=== PATIENT | female | born 1950 | race Caucasian/White ===

== ENCOUNTER → 2016-10-28 | Outpatient (REF) | payer MEDICARE, OTHER ==
[~2016-10-28] MED LIST: /ZIAC5TA OR; ACET65TA; CALCCHW12; CALCCHW12 PO; CIPR500T19 PO; FLAG500T PO; HYDR25TA6; PERC5TAB8 OR; THERGRAN PO; VICO5TAB OR; ZEBE5TAB PO; ZOFR8TAB OR; [UNRECOGNIZED DRUG - REMARK]; [UNRECOGNIZED DRUG - REMARK]; neosporin TOP
[2016-10-28 15:45] LABS: MEAN CORPUSCULAR HEMOGLOBIN 31.5 pg (27.0-33.0); MEAN CORPUSCULAR HGB CONC 33.5 g/dl (32.0-36.5); RED CELL DISTRIBUTION WIDTH 12.8 % (11.5-14.5); WHITE BLOOD COUNT 11.8 K/mm3 (4.0-10.0)
[2016-10-28 15:54] LABS: ALBUMIN 3.4 GM/DL (3.2-5.2); ALBUMIN/GLOBULIN RATIO 0.92 (1.00-1.93); ALKALINE PHOSPHATASE 113 U/L (45-117); ALT/SGPT 17 U/L (12-78); ANION GAP 7 MEQ/L (8-16); AST/SGOT 19 U/L (15-37); BILIRUBIN,TOTAL 0.4 MG/DL (0.2-1.0); BLOOD UREA NITROGEN 14 MG/DL (7-18); CARBON DIOXIDE LEVEL 32 MEQ/L (21-32); CHLORIDE LEVEL 104 MEQ/L (98-107); CHOLESTEROL LEVEL 175 MG/DL (<200); CREATININE FOR GFR 0.65 MG/DL (0.55-1.02); GLOMERULAR FILTRATION RATE > 60.0 (>45); GLUCOSE, FASTING 99 MG/DL (80-110); POTASSIUM SERUM 4.6 MEQ/L (3.5-5.1); SODIUM LEVEL 143 MEQ/L (136-145); TOTAL PROTEIN 7.1 GM/DL (6.4-8.2); TRIGLYCERIDES LEVEL 141 MG/DL (<150)
== END ==
LOC: M SFHCSACK 08:57
PROVIDERS: ATTEND Physician Assistant
DX: J44.9 Chronic obstructive pulmonary disease, unspecified (principal); D75.1 Secondary polycythemia; I10 Essential (primary) hypertension; Z68.41 Body mass index [BMI] 40.0-44.9, adult

== ENCOUNTER → 2017-05-14 | Outpatient (REF) | payer MEDICARE, OTHER ==
[2017-05-14 15:56] LABS: ALBUMIN 3.3 GM/DL (3.2-5.2); ALBUMIN/GLOBULIN RATIO 0.92 (1.00-1.93); ALKALINE PHOSPHATASE 112 U/L (45-117); ALT/SGPT 46 U/L (12-78); ANION GAP 8 MEQ/L (8-16); AST/SGOT 31 U/L (15-37); BILIRUBIN,TOTAL 0.3 MG/DL (0.2-1.0); BLOOD UREA NITROGEN 15 MG/DL (7-18); CALCIUM LEVEL 9.1 MG/DL (8.8-10.2); CARBON DIOXIDE LEVEL 31 MEQ/L (21-32); CHLORIDE LEVEL 105 MEQ/L (98-107); CHOLESTEROL LEVEL 165 MG/DL (<200); CREATININE FOR GFR 0.62 MG/DL (0.55-1.02); GLOMERULAR FILTRATION RATE > 60.0 (>45); GLUCOSE, FASTING 114 MG/DL (80-110); POTASSIUM SERUM 4.1 MEQ/L (3.5-5.1); SODIUM LEVEL 144 MEQ/L (136-145); TOTAL PROTEIN 6.9 GM/DL (6.4-8.2); TRIGLYCERIDES LEVEL 149 MG/DL (<150)
[2017-05-14 17:02] LABS: MEAN CORPUSCULAR HEMOGLOBIN 32.2 pg (27.0-33.0); MEAN CORPUSCULAR HGB CONC 34.2 g/dl (32.0-36.5); RED CELL DISTRIBUTION WIDTH 12.5 % (11.5-14.5); WHITE BLOOD COUNT 10.5 K/mm3 (4.0-10.0)
== END ==
LOC: M SFHCSACK 08:30
PROVIDERS: ATTEND Physician Assistant
DX: J44.9 Chronic obstructive pulmonary disease, unspecified (principal); D75.1 Secondary polycythemia; I10 Essential (primary) hypertension; Z68.41 Body mass index [BMI] 40.0-44.9, adult
CPT/HCPCS: 36415; 80053; 80061; 85027; G0463

== ENCOUNTER → 2017-08-03 | Outpatient (CLI) | payer MEDICARE, OTHER ==
[2017-08-03 17:09] LABS: ANION GAP 8 MEQ/L (8-16); BLOOD UREA NITROGEN 12 MG/DL (7-18); CALCIUM LEVEL 9.5 MG/DL (8.8-10.2); CARBON DIOXIDE LEVEL 34 MEQ/L (21-32); CHLORIDE LEVEL 100 MEQ/L (98-107); CREATININE FOR GFR 0.65 MG/DL (0.55-1.02); GLOMERULAR FILTRATION RATE > 60.0 (>45); GLUCOSE, FASTING 93 MG/DL (80-110); POTASSIUM SERUM 4.5 MEQ/L (3.5-5.1); SODIUM LEVEL 142 MEQ/L (136-145)
== END ==
LOC: M WUC 13:18
PROVIDERS: ATTEND Internal Medicine Cardiovascular Disease
DX: R60.9 Edema, unspecified (principal)

== ENCOUNTER 2017-10-27 14:31 | Inpatient (IN) | payer MEDICARE, BC, OTHER ==
[2017-10-27] MEDS: IPRATROPIUM 0.5MG/ALBUTEROL 2.5MG INH SOL UD 3ML (DUONEB)(J7620) NEB ×3 (15:28→23:54)
[2017-10-27 15:54] LABS: ABG BASE EXCESS 1.5 (-2.0-2.0); ABG O2 SATURATION 99.2 % (95.0-99.0); ABG PARTIAL PRESSURE CO2 40.3 mmHg (35.0-45.0); ABG PARTIAL PRESSURE O2 153.1 mmHg (75.0-100.0); ABG STANDARD HCO3 25.9 MEQ/L (22.0-26.0); ABG TOTAL CO2 27.2 MEQ/L (23.0-31.0); ABG pH (ARTERIAL) 7.427 UNITS (7.350-7.450)
[2017-10-27] MEDS: methylPREDNISolone INJ 125 MG/2 ML VIAL (J2930) IV (16:10)
[2017-10-27 16:19] LABS: BASO # 0.1 10^3/uL (0.0-0.2); BASO % 0.6 % (0.0-1.0); EOS # 0.2 10^3/uL (0.0-0.50); EOS % 1.3 % (0.0-3.0); HEMATOCRIT 55.1 % (36.0-47.0); HEMOGLOBIN 18.3 g/dl (12.0-16.0); IMMATURE GRANULOCYTE % 0.4 % (0-3.0); LYMPH % 14.1 % (24.0-44.0); MEAN CORPUSCULAR HEMOGLOBIN 31.3 pg (27.0-33.0); MEAN CORPUSCULAR HGB CONC 33.2 g/dl (32.0-36.5); MEAN CORPUSCULAR VOLUME 94.2 fl (80.0-96.0); MONO # 1.3 10^3/uL (0.0-0.8); NEUTROPHILS # 10.6 10^3/uL (1.8-7.7); NEUTROPHILS % 74.6 % (36.0-66.0); PLATELET COUNT, AUTOMATED 178 10^3/uL (150-450); RED BLOOD COUNT 5.85 10^6/uL (4.00-5.40); RED CELL DISTRIBUTION WIDTH 13.3 % (11.5-14.5); WHITE BLOOD COUNT 14.3 10^3/uL (4.0-10.0)
[2017-10-27 16:43] LABS: LACTIC ACID SEPSIS PROTOCOL 1.4 MMOL/L (0.4-2.0)
[2017-10-27 16:47] LABS: ANION GAP 5 MEQ/L (8-16); BLOOD UREA NITROGEN 15 MG/DL (7-18); CALCIUM LEVEL 9.2 MG/DL (8.8-10.2); CARBON DIOXIDE LEVEL 32 MEQ/L (21-32); CHLORIDE LEVEL 102 MEQ/L (98-107); CPK CREATINE PHOSPHOKINASE 61 U/L (26-192); CREATININE FOR GFR 0.86 MG/DL (0.55-1.30); GLOMERULAR FILTRATION RATE > 60.0 (>45); GLUCOSE, FASTING 101 MG/DL (70-100); MB/CK RELATIVE INDEX 3.27 (< OR =4); NT-PRO BNP 5050 PG/ML (<125); POTASSIUM SERUM 3.6 MEQ/L (3.5-5.1); SODIUM LEVEL 139 MEQ/L (136-145); TROPONIN I < 0.02 NG/ML (< 0.10)
[2017-10-27 16:50] LABS: INFLUENZA A AMPLIFICATION NEGATIVE (NEGATIVE); INFLUENZA B AMPLIFICATION NEGATIVE (NEGATIVE)
[2017-10-27] MEDS: FUROSEMIDE 100 MG/10 ML VIAL (J1940) IV (17:13)
[2017-10-27] MEDS ORDERED: ACETAMINOPHEN TAB 650MG DOSE (2X325MG) PO (18:45)
[2017-10-27] MEDS ORDERED: methylPREDNISolone 500 MG, VIAL MATE ADAPTER 1 EACH in D5W 250 ML IV (18:45)
[2017-10-27] MEDS ORDERED: ISOVUE-370 76% 100ML VIAL (Q9967) As Ordered (18:58)
[2017-10-27 19:06] LABS: MAGNESIUM LEVEL 1.7 MG/DL (1.8-2.4)
[2017-10-27] MEDS: POTASSIUM CHLORIDE 10 MEQ SR TABLET PO (21:23)
[2017-10-27] MEDS: HEPARIN SOD (PORCINE) 5000 UNITS/ML VIAL SC (21:24)
[2017-10-27] MEDS: MAG SULF 1GM/100ML (MAG RUN) 1 GM in APPROPRIATE DILUENT 1 EA IV (21:24)
[2017-10-27] MEDS ORDERED: HEPARIN SOD (PORCINE) 5000 UNITS/ML VIAL IV ×2 (21:30)
[2017-10-27] MEDS ORDERED: NICOTINE POLACRILEX 2 MG GUM PO (21:45)
[2017-10-27 22:14] LABS: INR 1.03; PARTIAL THROMBOPLASTIN TIME 32.4 SECONDS (26.8-37.9); PROTHROMBIN TIME 13.6 SECONDS (12.4-14.5)
[2017-10-27] MEDS: WARFARIN SOD 7.5 MG TAB PO (22:37)
[2017-10-27] MEDS: NICOTINE 14 MG/24 HR TRANSDERMAL TD (22:38)
[2017-10-27] MEDS: HEPARIN DRIP 25,000 UNITS in APPROPRIATE DILUENT 1 EA IV (23:05)
[2017-10-28] MEDS ORDERED: methylPREDNISolone INJ 125 MG/2 ML VIAL (J2930) IV
[2017-10-28 00:37] LABS: CPK CREATINE PHOSPHOKINASE 42 U/L (26-192); TROPONIN I < 0.02 NG/ML (< 0.10)
[2017-10-28 00:38] LABS: CK-MB VALUE MASS 1.4 NG/ML (0.0-3.6); MB/CK RELATIVE INDEX 3.33 (< OR =4)
[2017-10-28] MEDS ORDERED: FUROSEMIDE 40 MG/4 ML VIAL (J1940) IV ×2 (01:00→09:00)
[2017-10-28] MEDS: IPRATROPIUM 0.5MG/ALBUTEROL 2.5MG INH SOL UD 3ML (DUONEB)(J7620) NEB ×6 (04:00→23:33)
[2017-10-28 04:51] LABS: BASO % 0.3 % (0.0-1.0); EOS % 0.2 % (0.0-3.0); HEMATOCRIT 52.3 % (36.0-47.0); HEMOGLOBIN 17.5 g/dl (12.0-16.0); IMMATURE GRANULOCYTE % 0.3 % (0-3.0); LYMPH % 8.6 % (24.0-44.0); MEAN CORPUSCULAR HGB CONC 33.5 g/dl (32.0-36.5); MEAN CORPUSCULAR VOLUME 92.6 fl (80.0-96.0); MONO # 0.5 10^3/uL (0.0-0.8); MONO % 4.2 % (0.0-5.0); NEUTROPHILS # 9.7 10^3/uL (1.8-7.7); NEUTROPHILS % 86.4 % (36.0-66.0); PLATELET COUNT, AUTOMATED 196 10^3/uL (150-450); RED BLOOD COUNT 5.65 10^6/uL (4.00-5.40); RED CELL DISTRIBUTION WIDTH 13.2 % (11.5-14.5); WHITE BLOOD COUNT 11.2 10^3/uL (4.0-10.0)
[2017-10-28 05:10] LABS: INR 1.08; PROTHROMBIN TIME 14.2 SECONDS (12.4-14.5)
[2017-10-28 05:12] LABS: PARTIAL THROMBOPLASTIN TIME 71.7 SECONDS (26.8-37.9)
[2017-10-28 05:21] LABS: ANION GAP 6 MEQ/L (8-16); BLOOD UREA NITROGEN 16 MG/DL (7-18); CALCIUM LEVEL 8.7 MG/DL (8.8-10.2); CARBON DIOXIDE LEVEL 31 MEQ/L (21-32); CHLORIDE LEVEL 100 MEQ/L (98-107); CK-MB VALUE MASS 1.2 NG/ML (0.0-3.6); CPK CREATINE PHOSPHOKINASE 38 U/L (26-192); CREATININE FOR GFR 0.85 MG/DL (0.55-1.30); GLOMERULAR FILTRATION RATE > 60.0 (>45); GLUCOSE, FASTING 156 MG/DL (70-100); MB/CK RELATIVE INDEX 3.15 (< OR =4); POTASSIUM SERUM 3.9 MEQ/L (3.5-5.1); SODIUM LEVEL 137 MEQ/L (136-145); TROPONIN I < 0.02 NG/ML (< 0.10)
[2017-10-28] MEDS: FUROSEMIDE 20 MG TAB PO (08:14)
[2017-10-28] MEDS: BISOPROLOL FUMARATE 10 MG TAB PO (08:15)
[2017-10-28] MEDS ORDERED: POTASSIUM CHLORIDE 10 MEQ SR TABLET PO (09:00)
[2017-10-28 11:12] LABS: ESTIMATED AVERAGE GLUCOSE 134 MG/DL (60-110); HEMOGLOBIN A1c 6.3 %
[2017-10-28 12:02] LABS: PARTIAL THROMBOPLASTIN TIME 72.9 SECONDS (26.8-37.9)
[2017-10-28 12:12] LABS: CK-MB VALUE MASS 1.6 NG/ML (0.0-3.6); CPK CREATINE PHOSPHOKINASE 40 U/L (26-192); TROPONIN I < 0.02 NG/ML (< 0.10)
[2017-10-28] MEDS: HEPARIN DRIP 25,000 UNITS in APPROPRIATE DILUENT 1 EA IV (15:06)
[2017-10-28] MEDS: WARFARIN SOD 5 MG TAB PO (16:04)
[2017-10-28] MEDS: NICOTINE 14 MG/24 HR TRANSDERMAL TD (20:21)
[2017-10-29] MEDS: IPRATROPIUM 0.5MG/ALBUTEROL 2.5MG INH SOL UD 3ML (DUONEB)(J7620) NEB ×6 (03:08→23:24)
[2017-10-29 04:40] LABS: BASO # 0.1 10^3/uL (0.0-0.2); BASO % 0.6 % (0.0-1.0); EOS # 0.3 10^3/uL (0.0-0.50); EOS % 2.1 % (0.0-3.0); HEMATOCRIT 50.4 % (36.0-47.0); HEMOGLOBIN 16.5 g/dl (12.0-16.0); IMMATURE GRANULOCYTE % 0.6 % (0-3.0); LYMPH # 3.5 10^3/uL (1.5-4.5); LYMPH % 24.4 % (24.0-44.0); MEAN CORPUSCULAR HEMOGLOBIN 31.2 pg (27.0-33.0); MEAN CORPUSCULAR HGB CONC 32.7 g/dl (32.0-36.5); MEAN CORPUSCULAR VOLUME 95.3 fl (80.0-96.0); MONO # 1.1 10^3/uL (0.0-0.8); MONO % 7.6 % (0.0-5.0); NEUTROPHILS # 9.4 10^3/uL (1.8-7.7); NEUTROPHILS % 64.7 % (36.0-66.0); PLATELET COUNT, AUTOMATED 198 10^3/uL (150-450); RED BLOOD COUNT 5.29 10^6/uL (4.00-5.40); RED CELL DISTRIBUTION WIDTH 13.5 % (11.5-14.5); WHITE BLOOD COUNT 14.5 10^3/uL (4.0-10.0)
[2017-10-29 04:51] LABS: INR 1.12; PROTHROMBIN TIME 14.6 SECONDS (12.4-14.5)
[2017-10-29 04:53] LABS: PARTIAL THROMBOPLASTIN TIME 73.3 SECONDS (26.8-37.9)
[2017-10-29 05:01] LABS: ANION GAP 6 MEQ/L (8-16); BLOOD UREA NITROGEN 23 MG/DL (7-18); CALCIUM LEVEL 8.5 MG/DL (8.8-10.2); CARBON DIOXIDE LEVEL 31 MEQ/L (21-32); CHLORIDE LEVEL 103 MEQ/L (98-107); CREATININE FOR GFR 0.81 MG/DL (0.55-1.30); GLOMERULAR FILTRATION RATE > 60.0 (>45); GLUCOSE, FASTING 113 MG/DL (70-100); SODIUM LEVEL 140 MEQ/L (136-145)
[2017-10-29] MEDS: FUROSEMIDE 20 MG TAB PO (08:13)
[2017-10-29] MEDS: BISOPROLOL FUMARATE 10 MG TAB PO (08:14)
[2017-10-29] MEDS: HEPARIN DRIP 25,000 UNITS in APPROPRIATE DILUENT 1 EA IV (08:16)
[2017-10-29] MEDS: APIXABAN 5 MG TAB (ELIQUIS) PO ×2 (12:28→20:03)
[2017-10-29] MEDS: NICOTINE 14 MG/24 HR TRANSDERMAL TD (20:03)
[2017-10-30] MEDS: IPRATROPIUM 0.5MG/ALBUTEROL 2.5MG INH SOL UD 3ML (DUONEB)(J7620) NEB ×6 (02:15→23:43)
[2017-10-30 05:54] LABS: BASO # 0.1 10^3/uL (0.0-0.2); BASO % 0.8 % (0.0-1.0); EOS # 0.3 10^3/uL (0.0-0.50); EOS % 3.1 % (0.0-3.0); HEMATOCRIT 52.2 % (36.0-47.0); HEMOGLOBIN 16.9 g/dl (12.0-16.0); IMMATURE GRANULOCYTE % 0.5 % (0-3.0); LYMPH # 2.5 10^3/uL (1.5-4.5); LYMPH % 22.1 % (24.0-44.0); MEAN CORPUSCULAR HEMOGLOBIN 31.5 pg (27.0-33.0); MEAN CORPUSCULAR HGB CONC 32.4 g/dl (32.0-36.5); MEAN CORPUSCULAR VOLUME 97.2 fl (80.0-96.0); MONO # 1.1 10^3/uL (0.0-0.8); MONO % 10.3 % (0.0-5.0); NEUTROPHILS % 63.2 % (36.0-66.0); PLATELET COUNT, AUTOMATED 218 10^3/uL (150-450); RED BLOOD COUNT 5.37 10^6/uL (4.00-5.40); RED CELL DISTRIBUTION WIDTH 13.3 % (11.5-14.5); WHITE BLOOD COUNT 11.1 10^3/uL (4.0-10.0)
[2017-10-30 06:06] LABS: PROTHROMBIN TIME 17.4 SECONDS (12.4-14.5)
[2017-10-30 06:17] LABS: ANION GAP 5 MEQ/L (8-16); BLOOD UREA NITROGEN 19 MG/DL (7-18); CALCIUM LEVEL 9.1 MG/DL (8.8-10.2); CARBON DIOXIDE LEVEL 31 MEQ/L (21-32); CHLORIDE LEVEL 104 MEQ/L (98-107); CREATININE FOR GFR 0.72 MG/DL (0.55-1.30); GLOMERULAR FILTRATION RATE > 60.0 (>45); GLUCOSE, FASTING 102 MG/DL (70-100); POTASSIUM SERUM 4.4 MEQ/L (3.5-5.1); SODIUM LEVEL 140 MEQ/L (136-145)
[2017-10-30] MEDS: BISOPROLOL FUMARATE 10 MG TAB PO (08:56)
[2017-10-30] MEDS: FUROSEMIDE 20 MG TAB PO (08:56)
[2017-10-30] MEDS: APIXABAN 5 MG TAB (ELIQUIS) PO ×2 (08:56→20:20)
[2017-10-30] MEDS: NICOTINE 14 MG/24 HR TRANSDERMAL TD (20:22)
[2017-10-31] MEDS: IPRATROPIUM 0.5MG/ALBUTEROL 2.5MG INH SOL UD 3ML (DUONEB)(J7620) NEB ×6 (04:41→22:39)
[2017-10-31 05:55] LABS: BASO # 0.1 10^3/uL (0.0-0.2); BASO % 0.7 % (0.0-1.0); EOS # 0.5 10^3/uL (0.0-0.50); HEMATOCRIT 52.4 % (36.0-47.0); HEMOGLOBIN 16.8 g/dl (12.0-16.0); IMMATURE GRANULOCYTE % 0.4 % (0-3.0); LYMPH # 1.9 10^3/uL (1.5-4.5); MEAN CORPUSCULAR HEMOGLOBIN 31.5 pg (27.0-33.0); MEAN CORPUSCULAR HGB CONC 32.1 g/dl (32.0-36.5); MEAN CORPUSCULAR VOLUME 98.3 fl (80.0-96.0); MONO # 1.1 10^3/uL (0.0-0.8); NEUTROPHILS # 6.9 10^3/uL (1.8-7.7); NEUTROPHILS % 65.9 % (36.0-66.0); PLATELET COUNT, AUTOMATED 214 10^3/uL (150-450); RED BLOOD COUNT 5.33 10^6/uL (4.00-5.40); RED CELL DISTRIBUTION WIDTH 13.2 % (11.5-14.5); WHITE BLOOD COUNT 10.5 10^3/uL (4.0-10.0)
[2017-10-31 06:03] LABS: INR 1.38; PROTHROMBIN TIME 17.3 SECONDS (12.4-14.5)
[2017-10-31 06:25] LABS: ANION GAP 3 MEQ/L (8-16); BLOOD UREA NITROGEN 14 MG/DL (7-18); CALCIUM LEVEL 8.9 MG/DL (8.8-10.2); CARBON DIOXIDE LEVEL 32 MEQ/L (21-32); CHLORIDE LEVEL 105 MEQ/L (98-107); CREATININE FOR GFR 0.83 MG/DL (0.55-1.30); GLOMERULAR FILTRATION RATE > 60.0 (>45); GLUCOSE, FASTING 115 MG/DL (70-100); SODIUM LEVEL 140 MEQ/L (136-145)
[2017-10-31 06:28] LABS: POTASSIUM SERUM 5.7 MEQ/L (3.5-5.1)
[2017-10-31 08:00] LABS: POTASSIUM SERUM 4.6 MEQ/L (3.5-5.1)
[2017-10-31] MEDS: BISOPROLOL FUMARATE 10 MG TAB PO (08:01)
[2017-10-31] MEDS: FUROSEMIDE 40 MG TAB PO ×2 (08:01→16:55)
[2017-10-31] MEDS: APIXABAN 5 MG TAB (ELIQUIS) PO ×2 (08:02→20:15)
[2017-10-31] MEDS: NICOTINE 14 MG/24 HR TRANSDERMAL TD (20:15)
[2017-11-01] MEDS: IPRATROPIUM 0.5MG/ALBUTEROL 2.5MG INH SOL UD 3ML (DUONEB)(J7620) NEB ×6 (03:08→23:21)
[2017-11-01 05:55] LABS: BASO # 0.1 10^3/uL (0.0-0.2); BASO % 0.7 % (0.0-1.0); EOS # 0.6 10^3/uL (0.0-0.50); EOS % 5.8 % (0.0-3.0); HEMATOCRIT 50.7 % (36.0-47.0); HEMOGLOBIN 16.8 g/dl (12.0-16.0); IMMATURE GRANULOCYTE % 0.4 % (0-3.0); LYMPH # 1.9 10^3/uL (1.5-4.5); LYMPH % 17.6 % (24.0-44.0); MEAN CORPUSCULAR HEMOGLOBIN 31.6 pg (27.0-33.0); MEAN CORPUSCULAR HGB CONC 33.1 g/dl (32.0-36.5); MEAN CORPUSCULAR VOLUME 95.5 fl (80.0-96.0); MONO % 9.1 % (0.0-5.0); NEUTROPHILS # 7.1 10^3/uL (1.8-7.7); NEUTROPHILS % 66.4 % (36.0-66.0); PLATELET COUNT, AUTOMATED 204 10^3/uL (150-450); RED BLOOD COUNT 5.31 10^6/uL (4.00-5.40); RED CELL DISTRIBUTION WIDTH 13.1 % (11.5-14.5); WHITE BLOOD COUNT 10.7 10^3/uL (4.0-10.0)
[2017-11-01 06:05] LABS: INR 1.27; PROTHROMBIN TIME 16.2 SECONDS (12.4-14.5)
[2017-11-01 06:10] LABS: ANION GAP 6 MEQ/L (8-16); BLOOD UREA NITROGEN 15 MG/DL (7-18); CALCIUM LEVEL 8.5 MG/DL (8.8-10.2); CARBON DIOXIDE LEVEL 31 MEQ/L (21-32); CHLORIDE LEVEL 103 MEQ/L (98-107); CREATININE FOR GFR 0.63 MG/DL (0.55-1.30); GLOMERULAR FILTRATION RATE > 60.0 (>45); GLUCOSE, FASTING 110 MG/DL (70-100); POTASSIUM SERUM 4.1 MEQ/L (3.5-5.1); SODIUM LEVEL 140 MEQ/L (136-145)
[2017-11-01] MEDS: APIXABAN 5 MG TAB (ELIQUIS) PO ×2 (10:03→20:05)
[2017-11-01] MEDS: FUROSEMIDE 40 MG TAB PO ×2 (10:03→17:37)
[2017-11-01] MEDS: BISOPROLOL FUMARATE 10 MG TAB PO (10:04)
[2017-11-01] MEDS: NICOTINE 14 MG/24 HR TRANSDERMAL TD (20:05)
[2017-11-02] MEDS: IPRATROPIUM 0.5MG/ALBUTEROL 2.5MG INH SOL UD 3ML (DUONEB)(J7620) NEB ×3 (03:29→11:51)
[2017-11-02 06:22] LABS: INR 1.21; PROTHROMBIN TIME 15.5 SECONDS (12.4-14.5)
[2017-11-02] MEDS: BISOPROLOL FUMARATE 10 MG TAB PO (08:44)
[2017-11-02] MEDS: APIXABAN 5 MG TAB (ELIQUIS) PO (08:44)
[2017-11-02] MEDS: FUROSEMIDE 40 MG TAB PO (08:45)
== END 2017-11-02 15:33 | disposition home or self-care (01) | DRG 175 ==
LOC: M MSPAV 10-29 16:28 → M ED 14:31 → M ED INP 18:33 → M ICU 20:45
DX: I26.99 Other pulmonary embolism without acute cor pulmonale (principal); J96.01 Acute respiratory failure with hypoxia; J44.1 Chronic obstructive pulmonary disease with (acute) exacerbation; I50.32 Chronic diastolic (congestive) heart failure; Z68.42 Body mass index [BMI] 45.0-49.9, adult; G47.33 Obstructive sleep apnea (adult) (pediatric); F17.200 Nicotine dependence, unspecified, uncomplicated; E66.01 Morbid (severe) obesity due to excess calories; Z66 Do not resuscitate; I27.20 Pulmonary hypertension, unspecified; R73.03 Prediabetes; Z79.899 Other long term (current) drug therapy; Z91.040 Latex allergy status

== ENCOUNTER → 2017-11-10 | Outpatient (REF) | payer MEDICARE, OTHER ==
[2017-11-10 14:18] LABS: BASO # 0.1 10^3/uL (0.0-0.2); BASO % 0.9 % (0.0-1.0); EOS # 0.4 10^3/uL (0.0-0.50); EOS % 2.6 % (0.0-3.0); HEMATOCRIT 53.3 % (36.0-47.0); HEMOGLOBIN 17.4 g/dl (12.0-16.0); IMMATURE GRANULOCYTE % 0.4 % (0-3.0); LYMPH % 14.7 % (24.0-44.0); MEAN CORPUSCULAR HEMOGLOBIN 30.8 pg (27.0-33.0); MEAN CORPUSCULAR HGB CONC 32.6 g/dl (32.0-36.5); MEAN CORPUSCULAR VOLUME 94.3 fl (80.0-96.0); MONO # 1.1 10^3/uL (0.0-0.8); MONO % 7.9 % (0.0-5.0); NEUTROPHILS # 10.2 10^3/uL (1.8-7.7); NEUTROPHILS % 73.5 % (36.0-66.0); PLATELET COUNT, AUTOMATED 241 10^3/uL (150-450); RED BLOOD COUNT 5.65 10^6/uL (4.00-5.40); RED CELL DISTRIBUTION WIDTH 12.6 % (11.5-14.5); WHITE BLOOD COUNT 13.8 10^3/uL (4.0-10.0)
[2017-11-10 14:26] LABS: ALBUMIN 3.3 GM/DL (3.2-5.2); ALBUMIN/GLOBULIN RATIO 0.94 (1.00-1.93); ALKALINE PHOSPHATASE 110 U/L (45-117); ALT/SGPT 23 U/L (12-78); ANION GAP 5 MEQ/L (8-16); AST/SGOT 21 U/L (7-37); BILIRUBIN,TOTAL 0.4 MG/DL (0.2-1.0); BLOOD UREA NITROGEN 15 MG/DL (7-18); CALCIUM LEVEL 8.9 MG/DL (8.8-10.2); CARBON DIOXIDE LEVEL 34 MEQ/L (21-32); CHLORIDE LEVEL 103 MEQ/L (98-107); CREATININE FOR GFR 0.69 MG/DL (0.55-1.30); GLOMERULAR FILTRATION RATE > 60.0 (>45); GLUCOSE, FASTING 124 MG/DL (70-100); POTASSIUM SERUM 4.2 MEQ/L (3.5-5.1); SODIUM LEVEL 142 MEQ/L (136-145); TOTAL PROTEIN 6.8 GM/DL (6.4-8.2)
[2017-11-10 14:32] LABS: TOTAL 25(OH) VITAMIN D 24.7 NG/ML (30.0-100.0)
== END ==
LOC: M SFHCSACK 10:33
DX: Z00.00 Encounter for general adult medical examination without abnormal findings (principal); I10 Essential (primary) hypertension; E55.9 Vitamin D deficiency, unspecified
CPT/HCPCS: 80053

== ENCOUNTER → 2017-12-28 | Outpatient (CLI) | payer MEDICARE, BC, OTHER | LOC: M SLEEP 19:52 | DX: G47.30 Sleep apnea, unspecified (principal) | CPT/HCPCS: 95811 ==

== ENCOUNTER → 2018-03-08 | Outpatient (REF) | payer MEDICARE, OTHER ==
[2018-03-08 12:34] LABS: BASO # 0.1 10^3/uL (0.0-0.2); BASO % 0.8 % (0.0-1.0); EOS # 0.5 10^3/uL (0.0-0.50); EOS % 5.1 % (0.0-3.0); HEMATOCRIT 50.2 % (36.0-47.0); HEMOGLOBIN 16.6 g/dl (12.0-15.5); IMMATURE GRANULOCYTE % 0.4 % (0-3.0); LYMPH # 1.8 10^3/uL (1.5-4.5); LYMPH % 20.2 % (24.0-44.0); MEAN CORPUSCULAR HEMOGLOBIN 31.3 pg (27.0-33.0); MEAN CORPUSCULAR HGB CONC 33.1 g/dl (32.0-36.5); MEAN CORPUSCULAR VOLUME 94.5 fl (80.0-96.0); MONO # 0.8 10^3/uL (0.0-0.8); MONO % 8.9 % (0.0-5.0); NEUTROPHILS # 5.9 10^3/uL (1.8-7.7); NEUTROPHILS % 64.6 % (36.0-66.0); PLATELET COUNT, AUTOMATED 200 10^3/uL (150-450); RED BLOOD COUNT 5.31 10^6/uL (4.00-5.40); RED CELL DISTRIBUTION WIDTH 12.6 % (11.5-14.5); WHITE BLOOD COUNT 9.1 10^3/uL (4.0-10.0)
[2018-03-08 13:02] LABS: ALBUMIN 3.4 GM/DL (3.2-5.2); ALKALINE PHOSPHATASE 114 U/L (45-117); ALT/SGPT 27 U/L (12-78); ANION GAP 8 MEQ/L (8-16); AST/SGOT 23 U/L (7-37); BILIRUBIN,TOTAL 0.4 MG/DL (0.2-1.0); BLOOD UREA NITROGEN 18 MG/DL (7-18); CALCIUM LEVEL 8.9 MG/DL (8.8-10.2); CARBON DIOXIDE LEVEL 29 MEQ/L (21-32); CHLORIDE LEVEL 105 MEQ/L (98-107); CREATININE FOR GFR 0.71 MG/DL (0.55-1.30); GLOMERULAR FILTRATION RATE > 60.0 (>45); GLUCOSE, FASTING 112 MG/DL (70-100); SODIUM LEVEL 142 MEQ/L (136-145); TOTAL PROTEIN 6.8 GM/DL (6.4-8.2)
== END ==
LOC: M SFHCADAM 08:33
DX: D75.1 Secondary polycythemia (principal); R73.09 Other abnormal glucose; E55.9 Vitamin D deficiency, unspecified
CPT/HCPCS: 80053

== ENCOUNTER → 2018-08-03 | Outpatient (REF) | payer MEDICARE, OTHER ==
[~2018-08-03] MED LIST changes: +BISO10TA6 PO; +CALCTAB68 PO; +ELIQ5TAB PO; +ERYTGEL TOP; +FURO20TA2 PO; +LISI20TA PO
[2018-08-03 15:36] LABS: BASO # 0.1 10^3/uL (0.0-0.2); BASO % 0.6 % (0.0-1.0); EOS # 0.4 10^3/uL (0.0-0.50); EOS % 3.5 % (0.0-3.0); HEMATOCRIT 51.7 % (36.0-47.0); HEMOGLOBIN 16.5 g/dl (12.0-15.5); LYMPH # 2.1 10^3/uL (1.5-4.5); LYMPH % 19.2 % (24.0-44.0); MEAN CORPUSCULAR HGB CONC 31.9 g/dl (32.0-36.5); MONO % 9.3 % (0.0-5.0); NEUTROPHILS # 7.2 10^3/uL (1.8-7.7); PLATELET COUNT, AUTOMATED 245 10^3/uL (150-450); RED BLOOD COUNT 5.33 10^6/uL (4.00-5.40); WHITE BLOOD COUNT 10.8 10^3/uL (4.0-10.0)
[2018-08-03 15:43] LABS: ALBUMIN 3.1 GM/DL (3.2-5.2); ALT/SGPT 21 U/L (12-78); BILIRUBIN,TOTAL 0.4 MG/DL (0.2-1.0); BLOOD UREA NITROGEN 11 MG/DL (7-18); CALCIUM LEVEL 8.4 MG/DL (8.8-10.2); CARBON DIOXIDE LEVEL 31 MEQ/L (21-32); CHLORIDE LEVEL 104 MEQ/L (98-107); CHOLESTEROL LEVEL 175 MG/DL (<200); CHOLESTEROL RISK RATIO 4.605 (<5); CREATININE FOR GFR 0.77 MG/DL (0.55-1.30); FREE T4 0.88 NG/DL (0.76-1.46); GLOMERULAR FILTRATION RATE > 60.0 (>39); GLUCOSE, FASTING 116 MG/DL (70-100); HDL CHOLESTEROL 38 MG/DL (>40); LDL CHOLESTEROL 94 MG/DL (<100); NON-HDL-C 137 MG/DL; POTASSIUM SERUM 4.4 MEQ/L (3.5-5.1); SODIUM LEVEL 142 MEQ/L (136-145); TOTAL PROTEIN 6.7 GM/DL (6.4-8.2); TRIGLYCERIDES LEVEL 217 MG/DL (<150)
[2018-08-03 15:45] LABS: TOTAL 25(OH) VITAMIN D 33.8 NG/ML (30.0-100.0)
[2018-08-03 16:35] LABS: HEMOGLOBIN A1c 6.6 %
== END ==
LOC: M SFHCSACK 09:34
PROVIDERS: ATTEND Physician Assistant
DX: I10 Essential (primary) hypertension (principal); E78.2 Mixed hyperlipidemia; Z13.29 Encounter for screening for other suspected endocrine disorder; R73.01 Impaired fasting glucose; E55.9 Vitamin D deficiency, unspecified

== ENCOUNTER → 2018-10-31 | Outpatient (REF) | payer MEDICARE, OTHER ==
[2018-10-31 14:56] LABS: BASO # 0.1 10^3/uL (0.0-0.2); BASO % 0.7 % (0.0-1.0); EOS # 0.4 10^3/uL (0.0-0.50); EOS % 3.4 % (0.0-3.0); HEMATOCRIT 50.8 % (36.0-47.0); HEMOGLOBIN 16.9 g/dl (12.0-15.5); LYMPH # 1.9 10^3/uL (1.5-4.5); LYMPH % 16.9 % (24.0-44.0); MEAN CORPUSCULAR HEMOGLOBIN 31.7 pg (27.0-33.0); MEAN CORPUSCULAR HGB CONC 33.3 g/dl (32.0-36.5); MEAN CORPUSCULAR VOLUME 95.3 fl (80.0-96.0); MONO # 0.9 10^3/uL (0.0-0.8); MONO % 7.8 % (0.0-5.0); NEUTROPHILS % 70.8 % (36.0-66.0); PLATELET COUNT, AUTOMATED 239 10^3/uL (150-450); RED BLOOD COUNT 5.33 10^6/uL (4.00-5.40); WHITE BLOOD COUNT 11.3 10^3/uL (4.0-10.0)
[2018-10-31 14:58] LABS: ALBUMIN 3.4 GM/DL (3.2-5.2); ALT/SGPT 19 U/L (12-78); BILIRUBIN,TOTAL 0.4 MG/DL (0.2-1.0); BLOOD UREA NITROGEN 16 MG/DL (7-18); CALCIUM LEVEL 8.5 MG/DL (8.8-10.2); CARBON DIOXIDE LEVEL 28 MEQ/L (21-32); CHLORIDE LEVEL 106 MEQ/L (98-107); CHOLESTEROL LEVEL 147 MG/DL (<200); CREATININE FOR GFR 0.73 MG/DL (0.55-1.30); GLOMERULAR FILTRATION RATE > 60.0 (>39); GLUCOSE, FASTING 130 MG/DL (70-100); HDL CHOLESTEROL 44 MG/DL (>40); LDL CHOLESTEROL 74 MG/DL (<100); NON-HDL-C 103 MG/DL; POTASSIUM SERUM 4.2 MEQ/L (3.5-5.1); SODIUM LEVEL 141 MEQ/L (136-145); TOTAL PROTEIN 6.9 GM/DL (6.4-8.2); TRIGLYCERIDES LEVEL 146 MG/DL (<150)
[2018-10-31 15:58] LABS: HEMOGLOBIN A1c 6.3 %
== END ==
LOC: M SFHCSACK 09:56
PROVIDERS: ATTEND Physician Assistant
DX: I10 Essential (primary) hypertension (principal); E78.2 Mixed hyperlipidemia; R73.01 Impaired fasting glucose

== ENCOUNTER → 2019-06-15 | Outpatient (REF) | payer MEDICARE, OTHER ==
[~2019-06-15] MED LIST changes: -/ZIAC5TA OR; +BISO10TA10 PO; -BISO10TA6 PO; -LISI20TA PO; +LISI20TA19 PO; +ONDA-227 OR; +ZIAC1TAB OR; -ZOFR8TAB OR
[2019-06-15 16:43] LABS: BASO # 0.1 10^3/uL (0.0-0.2); BASO % 0.7 % (0.0-1.0); EOS # 0.4 10^3/uL (0.0-0.5); EOS % 3.2 % (0.0-3.0); HEMATOCRIT 53.7 % (36.0-47.0); HEMOGLOBIN 17.5 g/dl (12.0-15.5); LYMPH # 1.9 10^3/uL (1.5-5.0); LYMPH % 16.8 % (24.0-44.0); MEAN CORPUSCULAR HEMOGLOBIN 31.5 pg (27.0-33.0); MEAN CORPUSCULAR HGB CONC 32.6 g/dl (32.0-36.5); MEAN CORPUSCULAR VOLUME 96.8 fl (80.0-96.0); MONO % 8.5 % (0.0-5.0); NEUTROPHILS # 7.9 10^3/uL (1.5-8.5); NEUTROPHILS % 70.3 % (36.0-66.0); PLATELET COUNT, AUTOMATED 223 10^3/uL (150-450); RED BLOOD COUNT 5.55 10^6/uL (4.00-5.40); WHITE BLOOD COUNT 11.3 10^3/uL (4.0-10.0)
[2019-06-15 16:49] LABS: ALBUMIN 3.4 GM/DL (3.2-5.2); ALT/SGPT 21 U/L (12-78); BILIRUBIN,TOTAL 0.5 MG/DL (0.2-1.0); BLOOD UREA NITROGEN 12 MG/DL (7-18); CALCIUM LEVEL 9.3 MG/DL (8.8-10.2); CARBON DIOXIDE LEVEL 34 MEQ/L (21-32); CHLORIDE LEVEL 104 MEQ/L (98-107); CHOLESTEROL LEVEL 140 MG/DL (<200); CHOLESTEROL RISK RATIO 3.333 (<5); CREATININE FOR GFR 0.68 MG/DL (0.55-1.30); GLOMERULAR FILTRATION RATE > 60.0 (>39); GLUCOSE, FASTING 121 MG/DL (70-100); HDL CHOLESTEROL 42 MG/DL (>40); LDL CHOLESTEROL 57 MG/DL (<100); NON-HDL-C 98 MG/DL; POTASSIUM SERUM 4.7 MEQ/L (3.5-5.1); SODIUM LEVEL 143 MEQ/L (136-145); TOTAL PROTEIN 7.1 GM/DL (6.4-8.2); TRIGLYCERIDES LEVEL 205 MG/DL (<150)
[2019-06-15 16:57] LABS: TOTAL 25(OH) VITAMIN D 25.5 NG/ML (30.0-100.0)
[2019-06-15 17:03] LABS: HEMOGLOBIN A1c 6.3 %
== END ==
LOC: M SFHCSACK 08:37
PROVIDERS: ATTEND Physician Assistant
DX: E55.9 Vitamin D deficiency, unspecified (principal); R73.01 Impaired fasting glucose; E78.2 Mixed hyperlipidemia; D75.1 Secondary polycythemia

== ENCOUNTER → 2020-11-14 | Outpatient (REF) | payer MEDICARE, OTHER ==
[~2020-11-14] MED LIST changes: -BISO10TA10 PO; +BISO10TA14 PO; -LISI20TA19 PO; +LISI20TA35 PO
[2020-11-14 12:53] LABS: BASO # 0.1 10^3/uL (0.0-0.2); BASO % 0.7 % (0.0-1.0); EOS # 0.4 10^3/uL (0.0-0.5); EOS % 3.7 % (0.0-3.0); HEMATOCRIT 55.5 % (36.0-47.0); HEMOGLOBIN 17.8 g/dl (12.0-15.5); LYMPH # 1.7 10^3/uL (1.5-5.0); LYMPH % 16.9 % (24.0-44.0); MEAN CORPUSCULAR HEMOGLOBIN 30.5 pg (27.0-33.0); MEAN CORPUSCULAR HGB CONC 32.1 g/dl (32.0-36.5); MONO # 0.9 10^3/uL (0.0-0.8); MONO % 8.8 % (2.0-8.0); NEUTROPHILS # 7.1 10^3/uL (1.5-8.5); NEUTROPHILS % 69.6 % (36.0-66.0); PLATELET COUNT, AUTOMATED 217 10^3/uL (150-450); RED BLOOD COUNT 5.84 10^6/uL (4.00-5.40); WHITE BLOOD COUNT 10.2 10^3/uL (4.0-10.0)
[2020-11-14 13:25] LABS: ALBUMIN 3.5 GM/DL (3.2-5.2); ALT/SGPT 36 U/L (12-78); BILIRUBIN,TOTAL 0.4 MG/DL (0.2-1.0); BLOOD UREA NITROGEN 12 MG/DL (7-18); CALCIUM LEVEL 9.3 MG/DL (8.8-10.2); CARBON DIOXIDE LEVEL 36 MEQ/L (21-32); CHLORIDE LEVEL 102 MEQ/L (98-107); CHOLESTEROL LEVEL 134 MG/DL (<200); CREATININE FOR GFR 0.67 MG/DL (0.55-1.30); FREE T4 0.88 NG/DL (0.76-1.46); GLOMERULAR FILTRATION RATE > 60.0 (>39); GLUCOSE, FASTING 125 MG/DL (70-100); HDL CHOLESTEROL 42 MG/DL (>40); LDL CHOLESTEROL 68 MG/DL (<100); NON-HDL-C 92 MG/DL; POTASSIUM SERUM 4.2 MEQ/L (3.5-5.1); SODIUM LEVEL 140 MEQ/L (136-145); TOTAL PROTEIN 6.7 GM/DL (6.4-8.2); TRIGLYCERIDES LEVEL 120 MG/DL (<150)
[2020-11-14 13:26] LABS: TOTAL 25(OH) VITAMIN D 42.1 NG/ML (30.0-100.0)
[2020-11-14 13:35] LABS: HEMOGLOBIN A1c 5.9 %
== END ==
LOC: M SFHCADAM 08:40
PROVIDERS: ATTEND Family Medicine
DX: D75.1 Secondary polycythemia (principal); E78.2 Mixed hyperlipidemia; Z13.29 Encounter for screening for other suspected endocrine disorder; R73.01 Impaired fasting glucose; E55.9 Vitamin D deficiency, unspecified

== ENCOUNTER → 2020-11-15 | Outpatient (REF) | payer MEDICARE, OTHER ==
[2020-11-15 16:41] LABS: BASO # 0.1 10^3/uL (0.0-0.2); BASO % 0.8 % (0.0-1.0); EOS # 0.2 10^3/uL (0.0-0.5); EOS % 1.6 % (0.0-3.0); HEMOGLOBIN 17.5 g/dl (12.0-15.5); LYMPH # 1.6 10^3/uL (1.5-5.0); LYMPH % 12.6 % (24.0-44.0); MEAN CORPUSCULAR HEMOGLOBIN 30.6 pg (27.0-33.0); MEAN CORPUSCULAR HGB CONC 32.4 g/dl (32.0-36.5); MEAN CORPUSCULAR VOLUME 94.4 fl (80.0-96.0); MONO # 1.3 10^3/uL (0.0-0.8); MONO % 10.1 % (2.0-8.0); NEUTROPHILS # 9.2 10^3/uL (1.5-8.5); NEUTROPHILS % 74.5 % (36.0-66.0); PLATELET COUNT, AUTOMATED 226 10^3/uL (150-450); RED BLOOD COUNT 5.72 10^6/uL (4.00-5.40); WHITE BLOOD COUNT 12.4 10^3/uL (4.0-10.0)
[2020-11-15 17:19] LABS: THYROID STIMULATING HORMONE 1.21 uIU/ML (0.358-3.740)
== END ==
LOC: M SFHCADAM 14:08
PROVIDERS: ATTEND Family Medicine
DX: R06.00 Dyspnea, unspecified (principal); E55.9 Vitamin D deficiency, unspecified

== ENCOUNTER → 2020-11-15 | Outpatient (CLI) | payer MEDICARE, OTHER ==
--- NOTE | 2020-11-15 17:13 | REP ---
INDICATION: DYSPNEA ON EXERTION COMPARISON: 10/27/2017. TECHNIQUE: PA/Lateral FINDINGS: Lungs: Bibasilar interstitial fibrosis is unchanged. I do not see evidence of superimposed acute infiltrate. Heart: There is mild cardiomegaly. Mediastinum: Calcification and tortuosity of the thoracic aorta is again noted. There is no change in the mediastinal silhouette. Pleural angles: Unremarkable.. Bones and soft tissues: There are mild degenerative changes of the spine without compression deformity. IMPRESSION: No acute pulmonary disease. Mild cardiomegaly and chronic changes. <Electronically signed by Josh Colbert > 11/15/20 [id number]
== END ==
LOC: M ADAMS 14:15
PROVIDERS: ATTEND Family Medicine
DX: I51.7 Cardiomegaly (principal); R06.00 Dyspnea, unspecified; E55.9 Vitamin D deficiency, unspecified
CPT/HCPCS: 71046; 82306; 84443; 85025; G0463

== ENCOUNTER → 2021-04-10 | Outpatient (CLI) | payer MEDICARE, BC, OTHER ==
--- NOTE | 2021-04-10 17:14 | REP ---
INDICATION: ABNORMAL FINDING OF LUNG FIELD COMPARISON: Multiple the latest 10/27/[address] angio chest TECHNIQUE: Limited noncontrast enhanced helical CT scanning FINDINGS: Ascending aortic aneurysmal dilatation is now identified with a maximal AP dimension of 5.8 cm previously 4.9 cm. There is also evidence of diffuse descending thoracic aortic ectasia which continues inferiorly into the imaged upper abdomen where there is suprarenal aneurysmal dilatation/ectasia up to 4.2 cm in the AP dimension. There is no evidence of mediastinal or hilar adenopathy. Calcified lymph nodes are noted. There are no pleural or pericardial effusions. There is mild pericardial thickening. The remainder of the imaged upper abdomen shows benign-appearing low-density bilateral adrenal gland nodular thickening. Bone window technique throughout the examination shows chronic spinal degenerative changes. Evaluation of the lung costello show the area of asymmetric pleural based thickening seen previously in the inferior right upper lobe 12 significantly diminished in size. A few patchy bibasilar ground-glass opacities are noted status quo. The significant bibasilar opacities with air bronchograms have resolved. There is a 4 mm size nodule in the superior segment of the left lower lobe. This is unchanged from the prior exam. No new definite abnormal nodules, masses, or opacities have developed. IMPRESSION: 1. Thoracic and abdominal aortic abnormalities as described above. Further evaluation with a contrast enhanced CTA or with MRA is recommended. 2. Other upper abdominal findings as described above. 3. Chronic lung field changes as described above. There is been significant improvement compared to the latest prior examination which I have for comparison dated 10/27/2017. <Electronically signed by Silvestre Don > 04/10/21 [id number]
== END ==
LOC: M RAD 16:33
PROVIDERS: ATTEND Nurse Practitioner Adult Health
DX: R91.8 Other nonspecific abnormal finding of lung field (principal)

== ENCOUNTER → 2021-05-28 | Outpatient (CLI) | payer MEDICARE, BC, OTHER | LOC: M LABSMTC 11:15 | PROVIDERS: ATTEND Internal Medicine Cardiovascular Disease | DX: Z20.822 Contact with and (suspected) exposure to COVID-19 (principal) ==

== ENCOUNTER → 2021-06-30 | Outpatient (CLI) | payer MEDICARE, BC, OTHER | LOC: M LABSMTC 10:18 | PROVIDERS: ATTEND Nurse Practitioner | DX: Z20.822 Contact with and (suspected) exposure to COVID-19 (principal) ==

== ENCOUNTER → 2021-11-09 | Outpatient (CLI) | payer MEDICARE, BC, OTHER ==
[~2021-11-09] MED LIST changes: +ALBU8.5H INH; +ANOR1AER INH; +ASPI-523 PO; +ATOR80TA59 PO; +FURO40TA2 PO; +METO50TA7 PO; +NICO21PAT TD; +POTA-151 PO; +WARF-58 PO
== END ==
LOC: M SLEEP 20:00
PROVIDERS: ATTEND Nurse Practitioner Adult Health
DX: G47.30 Sleep apnea, unspecified (principal)

== ENCOUNTER → 2021-12-27 | Outpatient (CLI) | payer MEDICARE, BC, OTHER ==
[~2021-12-27] MED LIST changes: +TORS100T
== END ==
LOC: M SLEEP 20:00
PROVIDERS: ATTEND Nurse Practitioner Adult Health
DX: G47.33 Obstructive sleep apnea (adult) (pediatric) (principal)

== ENCOUNTER → 2022-04-24 | Outpatient (CLI) | payer MEDICARE, BC, OTHER | LOC: M WHC 14:38 | PROVIDERS: ATTEND Family Medicine | DX: Z12.31 Encounter for screening mammogram for malignant neoplasm of breast (principal) ==

== ENCOUNTER → 2022-05-21 | Outpatient (CLI) | payer MEDICARE, BC, OTHER | LOC: M RAD 12:29 | PROVIDERS: ATTEND Physician Assistant | DX: R09.89 Other specified symptoms and signs involving the circulatory and respiratory systems (principal) ==

== ENCOUNTER → 2022-12-21 | Outpatient (CLI) | payer MEDICARE, BC, OTHER | LOC: M RAD 14:35 | PROVIDERS: ATTEND Nurse Practitioner Adult Health | DX: Z12.2 Encounter for screening for malignant neoplasm of respiratory organs (principal); F17.218 Nicotine dependence, cigarettes, with other nicotine-induced disorders; R91.1 Solitary pulmonary nodule ==

== ENCOUNTER → 2023-01-20 | Outpatient (CLI) | payer MEDICARE, BC, OTHER | LOC: M PLARAD 15:02 | PROVIDERS: ATTEND Nurse Practitioner Adult Health | DX: R91.8 Other nonspecific abnormal finding of lung field (principal) | CPT/HCPCS: 78815; A9552 ==

== ENCOUNTER → 2023-01-25 | Outpatient (CLI) | payer MEDICARE, BC, OTHER | LOC: M RAD 14:58 | PROVIDERS: ATTEND Family Medicine | DX: R60.9 Edema, unspecified (principal) ==

== ENCOUNTER 2023-04-20 10:28 | Inpatient (IN) | payer MEDICARE, BC, OTHER ==
[~2023-04-20] VITALS: Ht 157.5 cm; Wt 103.4 kg
[~2023-04-20 10:28] MED LIST changes: -TORS100T; +TORS100T PO
[2023-04-20 13:50] VITALS: BP 129/69; TEMP 97.6; O2SAT 93
[2023-04-20] MEDS ORDERED: BISACODYL 10MG SUPP PR PRN (16:45)
[2023-04-20] MEDS ORDERED: ALBUTEROL 90 MCG/ACT 8GM HFA INHALER INH PRN (16:45)
[2023-04-20] MEDS ORDERED: MED REC IN PROGRESS XX SCH (18:05)
[2023-04-20] MEDS ORDERED: MULTTAB86 PO (18:58)
[2023-04-20] MEDS ORDERED: MUCI600T31 PO (18:58)
[2023-04-20] MEDS ORDERED: BUDE0.5S6 INH (18:58)
[2023-04-20] MEDS ORDERED: AMIO200T49 PO (18:58)
[2023-04-20] MEDS ORDERED: IPRA0.00 NEB (18:58)
[2023-04-20] MEDS ORDERED: HYDR-3713 PO (18:58)
[2023-04-20] MEDS ORDERED: SENN-186 PO (18:58)
[2023-04-20] MEDS ORDERED: NICO14DI24 TD (19:02)
[2023-04-20] MEDS ORDERED: METO100T5 PO (19:02)
[2023-04-20] MEDS ORDERED: HOME MED LIST COMPLETE! XX SCH (19:05)
[2023-04-20] MEDS: COMBIVENT RESPIMAT 100-20MCG INHALER 4GM INH SCH (19:57)
[2023-04-20] MEDS: BUDESONIDE 0.5 MG/2 ML INHALATION SUSPENSION INH SCH (19:57)
[2023-04-20 20:00] VITALS: BP 128/74; TEMP 97.5; O2SAT 95
[2023-04-20] MEDS: POTASSIUM CHLORIDE 10MEQ SR TABLET PO SCH (20:28)
[2023-04-20] MEDS: ATORVASTATIN 20 MG TAB PO SCH (20:28)
[2023-04-20] MEDS: SENNA 8.6 MG TAB (SENOKOT) PO SCH (20:29)
[2023-04-20] MEDS: DOCUSATE SODIUM 100MG CAPSULE PO SCH (20:29)
[2023-04-20] MEDS: METOPROLOL TARTRATE 100MG TAB PO SCH (20:29)
[2023-04-20] MEDS: guaiFENesin ER 600 MG TAB PO SCH (20:29)
[2023-04-20] MEDS: REMEDY PHYTOPLEX Z-GUARD PASTE 113GM TUBE (FROM STOREROOM PRODUCT) TOP SCH (20:31)
[2023-04-20] MEDS: NORCO, ANEXSIA 5/325MG TABLET (HYDROcodone/ACETAMINOPHEN) PO PRN (20:31)
[2023-04-20] MEDS: AMIODARONE 200 MG TAB (PACERONE) PO SCH (20:31)
[2023-04-21 06:00] VITALS: BP 114/58; TEMP 97; O2SAT 97
[2023-04-21 06:19] LABS: BASO # 0.1 10^3/uL (0.0-0.2); BASO % 0.6 % (0.0-1.0); EOS # 0.8 10^3/uL (0.0-0.5); HEMATOCRIT 27.7 % (36.0-47.0); HEMOGLOBIN 8.6 g/dl (12.0-15.5); LYMPH # 1.7 10^3/uL (1.5-5.0); LYMPH % 10.8 % (24.0-44.0); MEAN CORPUSCULAR HEMOGLOBIN 30.3 pg (27.0-33.0); MEAN CORPUSCULAR VOLUME 97.5 fl (80.0-96.0); MONO # 1.4 10^3/uL (0.0-0.8); MONO % 9.1 % (2.0-8.0); NEUTROPHILS # 11.2 10^3/uL (1.5-8.5); NEUTROPHILS % 72.2 % (36.0-66.0); PLATELET COUNT, AUTOMATED 284 10^3/uL (150-450); RED BLOOD COUNT 2.84 10^6/uL (4.00-5.40); WHITE BLOOD COUNT 15.4 10^3/uL (4.0-10.0)
[2023-04-21 06:43] LABS: ALBUMIN 2.4 G/DL (3.2-5.2); CALCIUM LEVEL 8.4 MG/DL (8.3-10.6); CREATININE FOR GFR 0.98 MG/DL (0.55-1.30); GLOMERULAR FILTRATION RATE 58.9 (>39); POTASSIUM SERUM 4.1 MMOL/L (3.5-5.1); TOTAL PROTEIN 5.4 G/DL (5.7-8.2)
[2023-04-21] MEDS: COMBIVENT RESPIMAT 100-20MCG INHALER 4GM INH SCH ×4 (07:22→20:40)
[2023-04-21] MEDS: BUDESONIDE 0.5 MG/2 ML INHALATION SUSPENSION INH SCH ×2 (07:22→20:40)
[2023-04-21] MEDS: guaiFENesin ER 600 MG TAB PO SCH ×2 (07:36→20:25)
[2023-04-21] MEDS: TORSEMIDE (DEMADEX) 50 MG PER 1/2 TAB PO SCH (07:36)
[2023-04-21] MEDS: ASPIRIN 81MG ENTERIC TABLET PO SCH (07:36)
[2023-04-21] MEDS: NICOTINE 14 MG/24 HR TRANSDERMAL TD SCH (07:36)
[2023-04-21] MEDS: REMEDY PHYTOPLEX Z-GUARD PASTE 113GM TUBE (FROM STOREROOM PRODUCT) TOP SCH ×3 (07:37→19:45)
[2023-04-21] MEDS: MULTIVITAMINS/MINERALS THERAP 1 TAB PO SCH (07:37)
[2023-04-21] MEDS: DOCUSATE SODIUM 100MG CAPSULE PO SCH ×2 (07:37→20:23)
[2023-04-21] MEDS: POTASSIUM CHLORIDE 10MEQ SR TABLET PO SCH ×2 (07:37→20:25)
[2023-04-21] MEDS: METOPROLOL TARTRATE 100MG TAB PO SCH ×2 (07:37→19:45)
[2023-04-21] MEDS: PANTOPRAZOLE 40MG TAB (PROTONIX) PO SCH (07:37)
[2023-04-21] MEDS: AMIODARONE 200 MG TAB (PACERONE) PO SCH ×2 (07:37→20:25)
[2023-04-21] MEDS: MICONAZOLE 2 % POWDER (DESENEX) TOP SCH ×2 (09:00→20:26)
[2023-04-21] MEDS: NORCO, ANEXSIA 5/325MG TABLET (HYDROcodone/ACETAMINOPHEN) PO PRN (12:54)
[2023-04-21 14:00] VITALS: BP 90/44; TEMP 97.6; O2SAT 99
[2023-04-21] MEDS: ACETAMINOPHEN 500 MG TAB PO SCH ×2 (15:25→20:25)
[2023-04-21] MEDS: LIDOCAINE 5% (LIDODERM) PATCH TD SCH (15:25)
[2023-04-21 20:00] VITALS: BP 119/59; TEMP 97.4; O2SAT 98
[2023-04-21] MEDS: SENNA 8.6 MG TAB (SENOKOT) PO SCH (20:23)
[2023-04-21] MEDS: ATORVASTATIN 20 MG TAB PO SCH (20:26)
[2023-04-22] VITALS (7 sets, daily range): BP systolic 106–122; BP diastolic 51–60; TEMP 97.5–98.4; O2SAT 93–100
[2023-04-22] MEDS ORDERED: DICLOFENAC EPOLAMINE 1.3% PATCH TOP PRN (01:30)
[2023-04-22 05:55] LABS: BASO # 0.1 10^3/uL (0.0-0.2); BASO % 0.6 % (0.0-1.0); EOS # 0.7 10^3/uL (0.0-0.5); EOS % 4.8 % (0.0-3.0); HEMOGLOBIN 8.4 g/dl (12.0-15.5); LYMPH # 1.3 10^3/uL (1.5-5.0); LYMPH % 8.7 % (24.0-44.0); MEAN CORPUSCULAR HEMOGLOBIN 30.2 pg (27.0-33.0); MEAN CORPUSCULAR HGB CONC 31.1 g/dl (32.0-36.5); MEAN CORPUSCULAR VOLUME 97.1 fl (80.0-96.0); MONO # 1.4 10^3/uL (0.0-0.8); MONO % 9.9 % (2.0-8.0); NEUTROPHILS # 10.7 10^3/uL (1.5-8.5); NEUTROPHILS % 73.8 % (36.0-66.0); PLATELET COUNT, AUTOMATED 276 10^3/uL (150-450); RED BLOOD COUNT 2.78 10^6/uL (4.00-5.40); WHITE BLOOD COUNT 14.4 10^3/uL (4.0-10.0)
[2023-04-22] MEDS: BUDESONIDE 0.5 MG/2 ML INHALATION SUSPENSION INH SCH ×2 (07:58→19:30)
[2023-04-22] MEDS: COMBIVENT RESPIMAT 100-20MCG INHALER 4GM INH SCH ×4 (07:59→19:30)
[2023-04-22] MEDS: DOCUSATE SODIUM 100MG CAPSULE PO SCH ×2 (08:49→21:07)
[2023-04-22] MEDS: ASPIRIN 81MG ENTERIC TABLET PO SCH (08:49)
[2023-04-22] MEDS: MULTIVITAMINS/MINERALS THERAP 1 TAB PO SCH (08:49)
[2023-04-22] MEDS: METOPROLOL TARTRATE 100MG TAB PO SCH ×2 (08:50→21:07)
[2023-04-22] MEDS: guaiFENesin ER 600 MG TAB PO SCH ×2 (08:50→21:06)
[2023-04-22] MEDS: POTASSIUM CHLORIDE 10MEQ SR TABLET PO SCH ×2 (08:50→21:07)
[2023-04-22] MEDS: TORSEMIDE (DEMADEX) 50 MG PER 1/2 TAB PO SCH (08:50)
[2023-04-22] MEDS: AMIODARONE 200 MG TAB (PACERONE) PO SCH ×2 (08:50→21:06)
[2023-04-22] MEDS: PANTOPRAZOLE 40MG TAB (PROTONIX) PO SCH (08:50)
[2023-04-22] MEDS: ACETAMINOPHEN 500 MG TAB PO SCH ×3 (08:51→21:07)
[2023-04-22] MEDS: NICOTINE 14 MG/24 HR TRANSDERMAL TD SCH (08:51)
[2023-04-22] MEDS: REMEDY PHYTOPLEX Z-GUARD PASTE 113GM TUBE (FROM STOREROOM PRODUCT) TOP SCH ×3 (08:51→21:00)
[2023-04-22] MEDS: LIDOCAINE 5% (LIDODERM) PATCH TD SCH (08:52)
[2023-04-22] MEDS: MICONAZOLE 2 % POWDER (DESENEX) TOP SCH ×2 (08:54→21:08)
[2023-04-22] MEDS: SENNA 8.6 MG TAB (SENOKOT) PO SCH (21:06)
[2023-04-22] MEDS: ATORVASTATIN 20 MG TAB PO SCH (21:07)
[2023-04-23] VITALS: O2SAT 98
[2023-04-23 06:00] VITALS: BP_SYST 128; BP_SYST 157; BP_DIAS 105; BP_DIAS 50; TEMP 97.5; O2SAT 95
[2023-04-23 06:49] LABS: BASO # 0.1 10^3/uL (0.0-0.2); BASO % 0.5 % (0.0-1.0); EOS # 0.6 10^3/uL (0.0-0.5); EOS % 3.5 % (0.0-3.0); HEMATOCRIT 27.8 % (36.0-47.0); HEMOGLOBIN 8.6 g/dl (12.0-15.5); LYMPH # 1.3 10^3/uL (1.5-5.0); LYMPH % 8.3 % (24.0-44.0); MEAN CORPUSCULAR HEMOGLOBIN 30.3 pg (27.0-33.0); MEAN CORPUSCULAR HGB CONC 30.9 g/dl (32.0-36.5); MEAN CORPUSCULAR VOLUME 97.9 fl (80.0-96.0); MONO # 1.3 10^3/uL (0.0-0.8); NEUTROPHILS # 12.6 10^3/uL (1.5-8.5); NEUTROPHILS % 77.5 % (36.0-66.0); PLATELET COUNT, AUTOMATED 293 10^3/uL (150-450); RED BLOOD COUNT 2.84 10^6/uL (4.00-5.40); WHITE BLOOD COUNT 16.2 10^3/uL (4.0-10.0)
[2023-04-23 07:08] LABS: CALCIUM LEVEL 8.2 MG/DL (8.3-10.6); CREATININE FOR GFR 0.98 MG/DL (0.55-1.30); GLOMERULAR FILTRATION RATE 58.9 (>39); POTASSIUM SERUM 4.7 MMOL/L (3.5-5.1)
[2023-04-23] MEDS: COMBIVENT RESPIMAT 100-20MCG INHALER 4GM INH SCH ×4 (07:20→19:23)
[2023-04-23] MEDS: BUDESONIDE 0.5 MG/2 ML INHALATION SUSPENSION INH SCH ×2 (07:20→19:23)
[2023-04-23] MEDS: guaiFENesin ER 600 MG TAB PO SCH ×2 (08:14→20:39)
[2023-04-23] MEDS: PANTOPRAZOLE 40MG TAB (PROTONIX) PO SCH (08:14)
[2023-04-23] MEDS: ACETAMINOPHEN 500 MG TAB PO SCH ×3 (08:14→20:40)
[2023-04-23] MEDS: NICOTINE 14 MG/24 HR TRANSDERMAL TD SCH (08:14)
[2023-04-23] MEDS: DOCUSATE SODIUM 100MG CAPSULE PO SCH ×2 (08:14→20:39)
[2023-04-23] MEDS: MULTIVITAMINS/MINERALS THERAP 1 TAB PO SCH (08:14)
[2023-04-23] MEDS: POTASSIUM CHLORIDE 10MEQ SR TABLET PO SCH ×2 (08:15→20:40)
[2023-04-23] MEDS: METOPROLOL TARTRATE 100MG TAB PO SCH ×2 (08:15→20:40)
[2023-04-23] MEDS: TORSEMIDE (DEMADEX) 50 MG PER 1/2 TAB PO SCH (08:15)
[2023-04-23] MEDS: AMIODARONE 200 MG TAB (PACERONE) PO SCH ×2 (08:15→20:39)
[2023-04-23] MEDS: ASPIRIN 81MG ENTERIC TABLET PO SCH (08:15)
[2023-04-23] MEDS: REMEDY PHYTOPLEX Z-GUARD PASTE 113GM TUBE (FROM STOREROOM PRODUCT) TOP SCH ×3 (08:16→20:41)
[2023-04-23] MEDS: LIDOCAINE 5% (LIDODERM) PATCH TD SCH (08:16)
[2023-04-23] MEDS: MICONAZOLE 2 % POWDER (DESENEX) TOP SCH ×2 (08:20→20:41)
[2023-04-23] MEDS: DOXYCYCLINE HYCLATE 100MG TABLET PO SCH ×2 (12:29→20:39)
[2023-04-23 14:00] VITALS: BP 135/75; TEMP 98.2; O2SAT 96
[2023-04-23] MEDS: LACTOBACILLUS ACIDOPHILUS CAP (BACID) PO SCH (18:02)
[2023-04-23 20:00] VITALS: BP 125/60; TEMP 98.2; O2SAT 96
[2023-04-23] MEDS: SENNA 8.6 MG TAB (SENOKOT) PO SCH (20:40)
[2023-04-23] MEDS: ATORVASTATIN 20 MG TAB PO SCH (20:40)
[2023-04-24 06:00] VITALS: BP 131/75; TEMP 97.6; O2SAT 95
[2023-04-24] MEDS: COMBIVENT RESPIMAT 100-20MCG INHALER 4GM INH SCH ×4 (08:42→23:48)
[2023-04-24] MEDS: REMEDY PHYTOPLEX Z-GUARD PASTE 113GM TUBE (FROM STOREROOM PRODUCT) TOP SCH ×3 (09:00→20:54)
[2023-04-24] MEDS: ACETAMINOPHEN 500 MG TAB PO SCH ×4 (09:00→20:48)
[2023-04-24] MEDS: DOCUSATE SODIUM 100MG CAPSULE PO SCH ×2 (09:00→20:49)
[2023-04-24] MEDS: NICOTINE 14 MG/24 HR TRANSDERMAL TD SCH (09:03)
[2023-04-24] MEDS: LIDOCAINE 5% (LIDODERM) PATCH TD SCH (09:03)
[2023-04-24] MEDS: guaiFENesin ER 600 MG TAB PO SCH ×2 (09:04→20:49)
[2023-04-24] MEDS: PANTOPRAZOLE 40MG TAB (PROTONIX) PO SCH (09:04)
[2023-04-24] MEDS: TORSEMIDE (DEMADEX) 50 MG PER 1/2 TAB PO SCH (09:04)
[2023-04-24] MEDS: AMIODARONE 200 MG TAB (PACERONE) PO SCH ×2 (09:04→20:48)
[2023-04-24] MEDS: MULTIVITAMINS/MINERALS THERAP 1 TAB PO SCH (09:04)
[2023-04-24] MEDS: LACTOBACILLUS ACIDOPHILUS CAP (BACID) PO SCH ×2 (09:04→17:27)
[2023-04-24] MEDS: METOPROLOL TARTRATE 100MG TAB PO SCH ×2 (09:05→20:53)
[2023-04-24] MEDS: DOXYCYCLINE HYCLATE 100MG TABLET PO SCH ×2 (09:05→20:47)
[2023-04-24] MEDS: ASPIRIN 81MG ENTERIC TABLET PO SCH (09:05)
[2023-04-24] MEDS: POTASSIUM CHLORIDE 10MEQ SR TABLET PO SCH ×2 (09:05→20:47)
[2023-04-24] MEDS: MICONAZOLE 2 % POWDER (DESENEX) TOP SCH ×2 (09:06→20:59)
[2023-04-24] MEDS: BUDESONIDE 0.5 MG/2 ML INHALATION SUSPENSION INH SCH ×2 (11:25→23:48)
[2023-04-24 14:00] VITALS: BP 133/64; TEMP 98.1; O2SAT 96
[2023-04-24 20:00] VITALS: BP 131/58; TEMP 98.5; O2SAT 97
[2023-04-24] MEDS: ATORVASTATIN 20 MG TAB PO SCH (20:47)
[2023-04-24] MEDS: SENNA 8.6 MG TAB (SENOKOT) PO SCH (20:49)
[2023-04-25 06:00] VITALS: BP 135/60; TEMP 97.6; O2SAT 97
[2023-04-25] MEDS: BUDESONIDE 0.5 MG/2 ML INHALATION SUSPENSION INH SCH ×2 (06:58→19:13)
[2023-04-25] MEDS: COMBIVENT RESPIMAT 100-20MCG INHALER 4GM INH SCH ×4 (06:59→19:13)
[2023-04-25] MEDS: REMEDY PHYTOPLEX Z-GUARD PASTE 113GM TUBE (FROM STOREROOM PRODUCT) TOP SCH ×3 (09:00→21:00)
[2023-04-25] MEDS: DOCUSATE SODIUM 100MG CAPSULE PO SCH ×2 (09:00→21:00)
[2023-04-25] MEDS: AMIODARONE 200 MG TAB (PACERONE) PO SCH ×2 (09:22→21:12)
[2023-04-25] MEDS: PANTOPRAZOLE 40MG TAB (PROTONIX) PO SCH (09:22)
[2023-04-25] MEDS: guaiFENesin ER 600 MG TAB PO SCH ×2 (09:22→21:12)
[2023-04-25] MEDS: ASPIRIN 81MG ENTERIC TABLET PO SCH (09:22)
[2023-04-25] MEDS: LACTOBACILLUS ACIDOPHILUS CAP (BACID) PO SCH ×2 (09:22→17:50)
[2023-04-25] MEDS: POTASSIUM CHLORIDE 10MEQ SR TABLET PO SCH ×2 (09:22→21:12)
[2023-04-25] MEDS: DOXYCYCLINE HYCLATE 100MG TABLET PO SCH ×2 (09:22→21:12)
[2023-04-25] MEDS: MULTIVITAMINS/MINERALS THERAP 1 TAB PO SCH (09:22)
[2023-04-25] MEDS: TORSEMIDE (DEMADEX) 50 MG PER 1/2 TAB PO SCH (09:22)
[2023-04-25] MEDS: METOPROLOL TARTRATE 100MG TAB PO SCH ×2 (09:23→21:12)
[2023-04-25] MEDS: ACETAMINOPHEN 500 MG TAB PO SCH ×3 (09:23→21:11)
[2023-04-25] MEDS: NICOTINE 14 MG/24 HR TRANSDERMAL TD SCH (09:24)
[2023-04-25] MEDS: MICONAZOLE 2 % POWDER (DESENEX) TOP SCH ×2 (09:24→21:13)
[2023-04-25] MEDS: LIDOCAINE 5% (LIDODERM) PATCH TD SCH (09:24)
[2023-04-25 14:00] VITALS: BP 109/55; TEMP 98.2; O2SAT 96
[2023-04-25 20:00] VITALS: BP 119/58; TEMP 98.2; O2SAT 97
[2023-04-25] MEDS: SENNA 8.6 MG TAB (SENOKOT) PO SCH (21:00)
[2023-04-25] MEDS: ATORVASTATIN 20 MG TAB PO SCH (21:11)
[2023-04-26 06:00] VITALS: BP 114/56; TEMP 98.3; O2SAT 98
[2023-04-26 06:17] LABS: BASO # 0.1 10^3/uL (0.0-0.2); BASO % 0.7 % (0.0-1.0); EOS # 0.7 10^3/uL (0.0-0.5); EOS % 4.1 % (0.0-3.0); HEMATOCRIT 28.1 % (36.0-47.0); HEMOGLOBIN 8.7 g/dl (12.0-15.5); LYMPH # 1.5 10^3/uL (1.5-5.0); LYMPH % 9.2 % (24.0-44.0); MEAN CORPUSCULAR HEMOGLOBIN 30.7 pg (27.0-33.0); MEAN CORPUSCULAR VOLUME 99.3 fl (80.0-96.0); MONO # 1.4 10^3/uL (0.0-0.8); MONO % 8.6 % (2.0-8.0); NEUTROPHILS # 12.3 10^3/uL (1.5-8.5); NEUTROPHILS % 75.9 % (36.0-66.0); PLATELET COUNT, AUTOMATED 293 10^3/uL (150-450); RED BLOOD COUNT 2.83 10^6/uL (4.00-5.40); WHITE BLOOD COUNT 16.2 10^3/uL (4.0-10.0)
[2023-04-26 06:41] LABS: CALCIUM LEVEL 8.3 MG/DL (8.3-10.6); GLOMERULAR FILTRATION RATE 57.5 (>39); POTASSIUM SERUM 4.6 MMOL/L (3.5-5.1)
[2023-04-26] MEDS: COMBIVENT RESPIMAT 100-20MCG INHALER 4GM INH SCH ×4 (07:13→19:54)
[2023-04-26] MEDS: BUDESONIDE 0.5 MG/2 ML INHALATION SUSPENSION INH SCH ×2 (07:13→19:54)
[2023-04-26] MEDS: AMIODARONE 200 MG TAB (PACERONE) PO SCH ×2 (08:42→22:23)
[2023-04-26] MEDS: POTASSIUM CHLORIDE 10MEQ SR TABLET PO SCH ×2 (08:42→22:19)
[2023-04-26] MEDS: MULTIVITAMINS/MINERALS THERAP 1 TAB PO SCH (08:43)
[2023-04-26] MEDS: LACTOBACILLUS ACIDOPHILUS CAP (BACID) PO SCH ×2 (08:43→17:12)
[2023-04-26] MEDS: PANTOPRAZOLE 40MG TAB (PROTONIX) PO SCH (08:43)
[2023-04-26] MEDS: DOXYCYCLINE HYCLATE 100MG TABLET PO SCH ×2 (08:43→22:20)
[2023-04-26] MEDS: ASPIRIN 81MG ENTERIC TABLET PO SCH (08:43)
[2023-04-26] MEDS: DOCUSATE SODIUM 100MG CAPSULE PO SCH ×2 (08:43→21:00)
[2023-04-26] MEDS: guaiFENesin ER 600 MG TAB PO SCH ×2 (08:43→22:20)
[2023-04-26] MEDS: ACETAMINOPHEN 500 MG TAB PO SCH ×3 (08:44→22:22)
[2023-04-26] MEDS: TORSEMIDE (DEMADEX) 50 MG PER 1/2 TAB PO SCH (08:44)
[2023-04-26] MEDS: LIDOCAINE 5% (LIDODERM) PATCH TD SCH (08:44)
[2023-04-26] MEDS: NICOTINE 14 MG/24 HR TRANSDERMAL TD SCH (08:44)
[2023-04-26] MEDS: REMEDY PHYTOPLEX Z-GUARD PASTE 113GM TUBE (FROM STOREROOM PRODUCT) TOP SCH ×3 (08:45→21:00)
[2023-04-26] MEDS: MICONAZOLE 2 % POWDER (DESENEX) TOP SCH ×2 (08:45→22:23)
[2023-04-26] MEDS: METOPROLOL TARTRATE 100MG TAB PO SCH ×2 (08:48→22:20)
[2023-04-26 14:00] VITALS: BP 111/53; TEMP 98.3; O2SAT 95
[2023-04-26 20:02] VITALS: BP 131/60; TEMP 98.2; O2SAT 96
[2023-04-26] MEDS: SENNA 8.6 MG TAB (SENOKOT) PO SCH (21:00)
[2023-04-26] MEDS: ATORVASTATIN 20 MG TAB PO SCH (22:22)
[2023-04-27 06:12] VITALS: BP 118/56; TEMP 98.2; O2SAT 95
[2023-04-27] MEDS: COMBIVENT RESPIMAT 100-20MCG INHALER 4GM INH SCH ×4 (08:22→20:14)
[2023-04-27] MEDS: BUDESONIDE 0.5 MG/2 ML INHALATION SUSPENSION INH SCH ×2 (08:22→20:14)
[2023-04-27] MEDS: PANTOPRAZOLE 40MG TAB (PROTONIX) PO SCH (08:46)
[2023-04-27] MEDS: AMIODARONE 200 MG TAB (PACERONE) PO SCH ×2 (08:46→21:11)
[2023-04-27] MEDS: TORSEMIDE (DEMADEX) 50 MG PER 1/2 TAB PO SCH (08:46)
[2023-04-27] MEDS: ASPIRIN 81MG ENTERIC TABLET PO SCH (08:46)
[2023-04-27] MEDS: DOXYCYCLINE HYCLATE 100MG TABLET PO SCH ×2 (08:46→21:11)
[2023-04-27] MEDS: guaiFENesin ER 600 MG TAB PO SCH ×2 (08:46→21:12)
[2023-04-27] MEDS: MULTIVITAMINS/MINERALS THERAP 1 TAB PO SCH (08:46)
[2023-04-27] MEDS: DOCUSATE SODIUM 100MG CAPSULE PO SCH ×2 (08:46→21:00)
[2023-04-27] MEDS: LACTOBACILLUS ACIDOPHILUS CAP (BACID) PO SCH ×2 (08:47→17:16)
[2023-04-27] MEDS: ACETAMINOPHEN 500 MG TAB PO SCH ×3 (08:47→21:13)
[2023-04-27] MEDS: POTASSIUM CHLORIDE 10MEQ SR TABLET PO SCH ×2 (08:47→21:13)
[2023-04-27] MEDS: METOPROLOL TARTRATE 100MG TAB PO SCH ×2 (08:48→21:12)
[2023-04-27] MEDS: LIDOCAINE 5% (LIDODERM) PATCH TD SCH (08:48)
[2023-04-27] MEDS: MICONAZOLE 2 % POWDER (DESENEX) TOP SCH ×2 (08:48→21:14)
[2023-04-27] MEDS: REMEDY PHYTOPLEX Z-GUARD PASTE 113GM TUBE (FROM STOREROOM PRODUCT) TOP SCH ×3 (08:48→21:00)
[2023-04-27] MEDS: NICOTINE 14 MG/24 HR TRANSDERMAL TD SCH (08:48)
[2023-04-27 14:00] VITALS: BP 133/63; TEMP 98.3; O2SAT 94
[2023-04-27 20:00] VITALS: BP 146/72; TEMP 98.4; O2SAT 95
[2023-04-27] MEDS: SENNA 8.6 MG TAB (SENOKOT) PO SCH (21:00)
[2023-04-27] MEDS: ATORVASTATIN 20 MG TAB PO SCH (21:13)
[2023-04-28 06:00] VITALS: BP 141/64; TEMP 97.1; O2SAT 97
[2023-04-28] MEDS: BUDESONIDE 0.5 MG/2 ML INHALATION SUSPENSION INH SCH (08:19)
[2023-04-28] MEDS: COMBIVENT RESPIMAT 100-20MCG INHALER 4GM INH SCH ×2 (08:20→12:22)
[2023-04-28] MEDS: REMEDY PHYTOPLEX Z-GUARD PASTE 113GM TUBE (FROM STOREROOM PRODUCT) TOP SCH (09:00)
[2023-04-28] MEDS: NICOTINE 14 MG/24 HR TRANSDERMAL TD SCH (09:35)
[2023-04-28] MEDS: DOXYCYCLINE HYCLATE 100MG TABLET PO SCH (09:35)
[2023-04-28] MEDS: guaiFENesin ER 600 MG TAB PO SCH (09:35)
[2023-04-28] MEDS: MULTIVITAMINS/MINERALS THERAP 1 TAB PO SCH (09:35)
[2023-04-28] MEDS: PANTOPRAZOLE 40MG TAB (PROTONIX) PO SCH (09:35)
[2023-04-28] MEDS: ASPIRIN 81MG ENTERIC TABLET PO SCH (09:35)
[2023-04-28] MEDS: DOCUSATE SODIUM 100MG CAPSULE PO SCH (09:35)
[2023-04-28 09:36] VITALS: BP 141/64
[2023-04-28] MEDS: METOPROLOL TARTRATE 100MG TAB PO SCH (09:36)
[2023-04-28] MEDS: TORSEMIDE (DEMADEX) 50 MG PER 1/2 TAB PO SCH (09:36)
[2023-04-28] MEDS: LACTOBACILLUS ACIDOPHILUS CAP (BACID) PO SCH (09:36)
[2023-04-28] MEDS: AMIODARONE 200 MG TAB (PACERONE) PO SCH (09:36)
[2023-04-28] MEDS: ACETAMINOPHEN 500 MG TAB PO SCH (09:37)
[2023-04-28] MEDS: MICONAZOLE 2 % POWDER (DESENEX) TOP SCH (09:38)
[2023-04-28] MEDS: LIDOCAINE 5% (LIDODERM) PATCH TD SCH (09:38)
[2023-04-28] MEDS: POTASSIUM CHLORIDE 10MEQ SR TABLET PO SCH (09:39)
[2023-04-28] MEDS ORDERED: ANOR1AER INH (10:19)
[2023-04-28] MEDS ORDERED: ATOR80TA59 PO (10:19)
[2023-04-28] MEDS ORDERED: POTA-151 PO (10:19)
[2023-04-28] MEDS ORDERED: ALBU8.5H INH (10:19)
[2023-04-28] MEDS ORDERED: ASPI-523 PO (10:20)
[2023-04-28] MEDS ORDERED: MULTTAB86 PO (10:20)
[2023-04-28] MEDS ORDERED: MUCI600T31 PO (10:20)
[2023-04-28] MEDS ORDERED: BUDE0.5S6 INH (10:20)
[2023-04-28] MEDS ORDERED: NICO14DI24 TD (10:20)
[2023-04-28] MEDS ORDERED: TORS100T PO (10:20)
[2023-04-28] MEDS ORDERED: AMIO200T49 PO (10:20)
[2023-04-28] MEDS ORDERED: METO100T5 PO (10:20)
[2023-04-28] MEDS ORDERED: IPRA0.00 NEB (10:20)
[2023-04-28] MEDS ORDERED: MICR2POW TOP (10:52)
[2023-04-28] MEDS ORDERED: DOXY100T PO (10:52)
[2023-04-28 13:00] VITALS: O2SAT 96
== END 2023-04-28 12:50 | disposition home health service (06) | DRG 948 ==
LOC: M PM&R 14:30
PROVIDERS: ADMIT Physical Medicine & Rehabilitation; ATTEND Student in an Organized Health Care Education/Training Program
DX: R53.1 Weakness (principal); I50.32 Chronic diastolic (congestive) heart failure; G47.33 Obstructive sleep apnea (adult) (pediatric); I11.0 Hypertensive heart disease with heart failure; I48.91 Unspecified atrial fibrillation; Z99.81 Dependence on supplemental oxygen; J44.9 Chronic obstructive pulmonary disease, unspecified; D72.829 Elevated white blood cell count, unspecified; Z74.09 Other reduced mobility; Z74.1 Need for assistance with personal care; D64.9 Anemia, unspecified; Z90.49 Acquired absence of other specified parts of digestive tract; Z93.3 Colostomy status; Z98.890 Other specified postprocedural states; Z79.82 Long term (current) use of aspirin; Z79.899 Other long term (current) drug therapy; Z87.891 Personal history of nicotine dependence

== ENCOUNTER → 2023-05-10 | Outpatient (REF) | payer MEDICARE, OTHER ==
[~2023-05-10] MED LIST changes: +AMIO200T49 PO; +BUDE0.5S6 INH; +DOXY100T PO; +HYDR-3713 PO; +IPRA0.00 NEB; +METO100T5 PO; +MICR2POW TOP; +MUCI600T31 PO; +MULTTAB86 PO; +NICO14DI24 TD; +SENN-186 PO
[2023-05-10 19:20] LABS: BASO # 0.1 10^3/uL (0.0-0.2); BASO % 0.5 % (0.0-1.0); EOS # 0.4 10^3/uL (0.0-0.5); EOS % 2.9 % (0.0-3.0); HEMATOCRIT 33.8 % (36.0-47.0); HEMOGLOBIN 10.4 g/dl (12.0-15.5); LYMPH # 1.5 10^3/uL (1.5-5.0); MEAN CORPUSCULAR HEMOGLOBIN 30.2 pg (27.0-33.0); MEAN CORPUSCULAR HGB CONC 30.8 g/dl (32.0-36.5); MEAN CORPUSCULAR VOLUME 98.3 fl (80.0-96.0); MONO # 1.4 10^3/uL (0.0-0.8); NEUTROPHILS # 10.3 10^3/uL (1.5-8.5); NEUTROPHILS % 75.1 % (36.0-66.0); PLATELET COUNT, AUTOMATED 319 10^3/uL (150-450); RED BLOOD COUNT 3.44 10^6/uL (4.00-5.40); WHITE BLOOD COUNT 13.7 10^3/uL (4.0-10.0)
[2023-05-10 19:53] LABS: PERCENT SATURATION 10.8 % (13.2-45.0)
== END ==
LOC: M SFHCADAM 13:59
PROVIDERS: ATTEND Physician Assistant
DX: D62 Acute posthemorrhagic anemia (principal)

== ENCOUNTER 2023-08-04 10:10 | Day surgery (SDC) | payer MEDICARE, BC, OTHER ==
[~2023-08-04] VITALS: Ht 157.5 cm; Wt 95.7 kg
[2023-08-04] MEDS ORDERED: LR 1,000 ML IV SCH (10:50)
[2023-08-04] MEDS ORDERED: fentaNYL 100 MCG/2 ML INJECTION As Ordered ONE (11:14)
[2023-08-04] MEDS ORDERED: ROCURONIUM BROMIDE 50MG/5ML VIAL As Ordered ONE (11:14)
[2023-08-04] MEDS ORDERED: LIDOCAINE 2% 100MG/5ML SDV (FOR ANES.) As Ordered ONE (11:14)
[2023-08-04] MEDS ORDERED: MIDAZOLAM INJ 2MG/2ML VIAL As Ordered ONE (11:14)
[2023-08-04] MEDS ORDERED: propofoL 200 MG/20 ML VIAL As Ordered ONE (11:14)
[2023-08-04] MEDS ORDERED: LIDOCAINE 1% SDV 30ML VIAL As Ordered ONE (12:57)
[2023-08-04 14:06] VITALS: BP 139/79; TEMP 98.1; O2SAT 93
== END 2023-08-04 14:12 | disposition home or self-care (01) ==
LOC: M SDC 10:10
PROVIDERS: ATTEND Internal Medicine Pulmonary Disease
DX: J90 Pleural effusion, not elsewhere classified (principal); J43.9 Emphysema, unspecified; J96.10 Chronic respiratory failure, unspecified whether with hypoxia or hypercapnia; I26.99 Other pulmonary embolism without acute cor pulmonale; I10 Essential (primary) hypertension; E78.5 Hyperlipidemia, unspecified; E11.9 Type 2 diabetes mellitus without complications; J44.9 Chronic obstructive pulmonary disease, unspecified; Z79.51 Long term (current) use of inhaled steroids; Z79.899 Other long term (current) drug therapy; Z79.4 Long term (current) use of insulin; Z79.84 Long term (current) use of oral hypoglycemic drugs; Z79.01 Long term (current) use of anticoagulants; F17.218 Nicotine dependence, cigarettes, with other nicotine-induced disorders; E66.01 Morbid (severe) obesity due to excess calories
CPT/HCPCS: 32552; 71045; J2250; J3010

== ENCOUNTER → 2023-10-20 | Outpatient (REF) | payer MEDICARE, BC, OTHER ==
[2023-10-20 16:28] LABS: HEMOGLOBIN 12.4 g/dl (12.0-15.5); MEAN CORPUSCULAR HEMOGLOBIN 27.3 pg (27.0-33.0); MEAN CORPUSCULAR HGB CONC 29.5 g/dl (32.0-36.5); MEAN CORPUSCULAR VOLUME 92.5 fl (80.0-96.0); PLATELET COUNT, AUTOMATED 191 10^3/uL (150-450); RED BLOOD COUNT 4.54 10^6/uL (4.00-5.40); WHITE BLOOD COUNT 8.8 10^3/uL (4.0-10.0)
[2023-10-20 16:56] LABS: THYROID STIMULATING HORMONE 1.805 uIU/ML (0.55-4.78)
[2023-10-20 16:57] LABS: BLOOD UREA NITROGEN 12 MG/DL (9-23); CALCIUM LEVEL 9.4 MG/DL (8.3-10.6); CARBON DIOXIDE LEVEL 36 MMOL/L (20-31); CHLORIDE LEVEL 103 MMOL/L (98-107); CREATININE FOR GFR 0.72 MG/DL (0.55-1.30); GLOMERULAR FILTRATION RATE > 60.0 (>39); GLUCOSE, FASTING 88 MG/DL (74-106); POTASSIUM SERUM 4.5 MMOL/L (3.5-5.1); SODIUM LEVEL 142 MMOL/L (136-145)
== END ==
LOC: M LABDRWAD 15:58
PROVIDERS: ATTEND Physician Assistant
DX: I26.99 Other pulmonary embolism without acute cor pulmonale (principal); I50.32 Chronic diastolic (congestive) heart failure; I48.0 Paroxysmal atrial fibrillation

== ENCOUNTER → 2023-12-08 | Outpatient (REF) | payer MEDICARE, BC | LOC: M SFHCADAM 17:19 | PROVIDERS: ATTEND Family Medicine | DX: Z12.11 Encounter for screening for malignant neoplasm of colon (principal) ==

== ENCOUNTER → 2023-12-16 | Outpatient (CLI) | payer MEDICARE, BC | LOC: M PLAIMG 10:45 | PROVIDERS: ATTEND Surgery Vascular Surgery | DX: I71.20 Thoracic aortic aneurysm, without rupture, unspecified (principal); R91.8 Other nonspecific abnormal finding of lung field ==

== ENCOUNTER → 2024-02-28 | Outpatient (CLI) | payer MEDICARE, BC ==
[~2024-02-28] MED LIST changes: +ERYT1GEL5 TOP; -ERYTGEL TOP
== END ==
LOC: M PLARAD 08:24
PROVIDERS: ATTEND Internal Medicine Pulmonary Disease
DX: R91.8 Other nonspecific abnormal finding of lung field (principal)
CPT/HCPCS: 78815; A9552

== ENCOUNTER → 2024-04-03 | Outpatient (CLI) | payer MEDICARE, BC ==
[~2024-04-03] MED LIST changes: +CALC500C16 PO; +D3 S1CAP3 PO
[2024-04-03 15:26] LABS: PLATELET COUNT, AUTOMATED 208 10^3/uL (150-450)
[2024-04-03 15:44] LABS: INR 1.13; PARTIAL THROMBOPLASTIN TIME 33.7 SECONDS (24.8-34.2); PROTHROMBIN TIME 14.2 SECONDS (12.5-14.5)
== END ==
LOC: M RAD 14:35
PROVIDERS: ATTEND Internal Medicine Pulmonary Disease
DX: Z01.812 Encounter for preprocedural laboratory examination (principal); R91.8 Other nonspecific abnormal finding of lung field; R91.1 Solitary pulmonary nodule; Z79.01 Long term (current) use of anticoagulants

== ENCOUNTER 2024-04-05 06:13 | Day surgery (SDC) | payer MEDICARE, BC ==
[~2024-04-05] VITALS: Ht 157.5 cm; Wt 95.3 kg
[2024-04-05] MEDS ORDERED: propofoL 200 MG/20 ML VIAL As Ordered ONE (07:02)
[2024-04-05] MEDS ORDERED: ROCURONIUM BROMIDE 50MG/5ML VIAL As Ordered ONE (07:02)
[2024-04-05] MEDS ORDERED: fentaNYL 100 MCG/2 ML INJECTION As Ordered ONE (07:02)
[2024-04-05] MEDS ORDERED: LIDOCAINE 2% 100MG/5ML SDV (FOR ANES.) As Ordered ONE (07:02)
[2024-04-05] MEDS ORDERED: ONDANSETRON 4MG 2ML VIAL As Ordered ONE (07:02)
[2024-04-05] MEDS ORDERED: SUGAMMADEX SODIUM 500 MG/5 ML VIAL (BRIDION) As Ordered ONE (07:02)
[2024-04-05] MEDS ORDERED: EPINEPHrine 1MG/10ML SYRINGE 1.5IN As Ordered ONE (07:13)
[2024-04-05] MEDS ORDERED: THROMBIN 5,000 UNITS VIAL As Ordered ONE (07:13)
[2024-04-05] MEDS: LIDOCAINE PRES-FREE 2% 10ML AMP INH ONE (07:19)
[2024-04-05] MEDS: LR 1,000 ML IV SCH (07:19)
[2024-04-05] MEDS: ALBUTEROL SULFATE 2.5MG/0.5ML INH NEB SOLN INH ONE (07:19)
[2024-04-05] MEDS ORDERED: PHENYLephrine 500MCG 5ML (100MCG/ML) SYRINGE As Ordered ONE (07:57)
[2024-04-05] MEDS: CETACAINE SPRAY 5GM As Ordered ONE (08:15)
[2024-04-05] MEDS ORDERED: ONDANSETRON 4MG 2ML VIAL IV PRN (08:40)
[2024-04-05] MEDS ORDERED: fentaNYL 100 MCG/2 ML INJECTION IV PRN (08:40)
[2024-04-05] MEDS ORDERED: LR 1,000 ML IV SCH (08:40)
[2024-04-05 10:27] VITALS: BP 132/70; TEMP 97.5; O2SAT 95
== END 2024-04-05 10:29 | disposition home or self-care (01) ==
LOC: M SDC 06:13
PROVIDERS: ATTEND Internal Medicine Pulmonary Disease
DX: R91.8 Other nonspecific abnormal finding of lung field (principal); J43.9 Emphysema, unspecified; J96.12 Chronic respiratory failure with hypercapnia; J96.11 Chronic respiratory failure with hypoxia; I10 Essential (primary) hypertension; I48.91 Unspecified atrial fibrillation; Z99.81 Dependence on supplemental oxygen; I25.2 Old myocardial infarction; E78.00 Pure hypercholesterolemia, unspecified; F17.210 Nicotine dependence, cigarettes, uncomplicated; Z79.01 Long term (current) use of anticoagulants; Z79.899 Other long term (current) drug therapy; G47.33 Obstructive sleep apnea (adult) (pediatric); Z79.82 Long term (current) use of aspirin; E66.01 Morbid (severe) obesity due to excess calories; Z86.711 Personal history of pulmonary embolism; Z95.5 Presence of coronary angioplasty implant and graft; Z90.49 Acquired absence of other specified parts of digestive tract
CPT/HCPCS: 31624; 31627; 31628; 31652; 71045; 76000; 88108; 88173; 88305; 88313; C1601; J0171; J2371; J2405; J3010

== ENCOUNTER → 2024-05-25 | Outpatient (CLI) | payer MEDICARE, BC | LOC: M ONCR 13:29 | PROVIDERS: ATTEND General Practice | DX: R91.1 Solitary pulmonary nodule (principal); F17.210 Nicotine dependence, cigarettes, uncomplicated; Z79.01 Long term (current) use of anticoagulants; Z80.1 Family history of malignant neoplasm of trachea, bronchus and lung; Z79.82 Long term (current) use of aspirin; Z79.899 Other long term (current) drug therapy ==

== ENCOUNTER 2024-06-13 10:25 | Outpatient (RCR) | payer MEDICARE, BC ==
[2024-06-28] MEDS ORDERED: FLUC100T3 PO (13:21)
== END 2024-06-22 ==
LOC: M ONCR 10:25
PROVIDERS: ATTEND General Practice
DX: Z51.0 Encounter for antineoplastic radiation therapy (principal); C34.32 Malignant neoplasm of lower lobe, left bronchus or lung

== ENCOUNTER 2024-07-04 12:21 | Outpatient (RCR) | payer MEDICARE, BC ==
[~2024-07-04 12:21] MED LIST changes: +FLUC100T3 PO
== END 2024-07-22 ==
LOC: M ONCR 12:21
PROVIDERS: ATTEND General Practice
DX: Z51.0 Encounter for antineoplastic radiation therapy (principal); C34.32 Malignant neoplasm of lower lobe, left bronchus or lung

== ENCOUNTER → 2024-09-26 | Outpatient (CLI) | payer MEDICARE, BC ==
[~2024-09-26] MED LIST changes: +ISOVUE-370 76% 100ML VIAL As Ordered ONE
== END ==
LOC: M RAD 13:25
PROVIDERS: ATTEND General Practice
DX: C34.32 Malignant neoplasm of lower lobe, left bronchus or lung (principal); R91.8 Other nonspecific abnormal finding of lung field
CPT/HCPCS: 71260; Q9967

== ENCOUNTER → 2024-10-04 | Outpatient (CLI) | payer MEDICARE, BC ==
[~2024-10-04] MED LIST changes: -ISOVUE-370 76% 100ML VIAL As Ordered ONE
== END ==
LOC: M ONCR 13:16
PROVIDERS: ATTEND General Practice
DX: R91.8 Other nonspecific abnormal finding of lung field (principal); F17.210 Nicotine dependence, cigarettes, uncomplicated; Z92.3 Personal history of irradiation; Z79.899 Other long term (current) drug therapy; Z79.82 Long term (current) use of aspirin; Z79.01 Long term (current) use of anticoagulants

== ENCOUNTER → 2024-10-16 | Outpatient (CLI) | payer MEDICARE, BC | LOC: M PLARAD 14:56 | PROVIDERS: ATTEND General Practice | DX: C34.32 Malignant neoplasm of lower lobe, left bronchus or lung (principal) | CPT/HCPCS: 78815; A9552 ==

== ENCOUNTER 2024-11-17 11:39 | Outpatient (RCR) | payer MEDICARE, BC | END 2024-11-20 | LOC: M ONCR 11:39 | PROVIDERS: ATTEND General Practice | DX: Z51.0 Encounter for antineoplastic radiation therapy (principal); C34.32 Malignant neoplasm of lower lobe, left bronchus or lung ==

== ENCOUNTER → 2025-02-19 | Outpatient (CLI) | payer MEDICARE, BC ==
[~2025-02-19] MED LIST changes: -AMIO200T49 PO; +AMIO200T54 PO
== END ==
LOC: M ONCR 13:58
PROVIDERS: ATTEND General Practice
DX: C34.32 Malignant neoplasm of lower lobe, left bronchus or lung (principal); R91.8 Other nonspecific abnormal finding of lung field; F17.210 Nicotine dependence, cigarettes, uncomplicated; Z79.01 Long term (current) use of anticoagulants; Z79.82 Long term (current) use of aspirin; Z79.899 Other long term (current) drug therapy; Z92.3 Personal history of irradiation; Z71.2 Person consulting for explanation of examination or test findings

== ENCOUNTER 2025-04-09 13:59 | Inpatient (IN) | payer MEDICARE, BC ==
[2025-04-09] VITALS (7 sets, daily range): BP systolic 110–118; BP diastolic 59–65; TEMP 97.6–97.8; O2SAT 82–94
[~2025-04-09] VITALS: Ht 157.5 cm; Wt 93.6 kg
[~2025-04-09 13:59] MED LIST changes: +LEVO75TAB PO; +PRED50TA57 PO
[2025-04-09] MEDS: IPRATROPIUM 0.5 MG/ALBUTEROL 2.5 MG INH SOL UD 3 ML NEB PRN (14:42)
[2025-04-09 15:16] LABS: BASO # 0.1 10^3/uL (0.0-0.2); BASO % 0.4 % (0.0-1.0); EOS # 0.1 10^3/uL (0.0-0.5); EOS % 0.9 % (0.0-3.0); LYMPH # 0.4 10^3/uL (1.5-5.0); LYMPH % 3.1 % (24.0-44.0); MONO # 0.6 10^3/uL (0.0-0.8); MONO % 4.3 % (2.0-8.0); NEUTROPHILS # 11.6 10^3/uL (1.5-8.5); NEUTROPHILS % 90.9 % (36.0-66.0); PLATELET COUNT, AUTOMATED 159 10^3/uL (150-450)
[2025-04-09 15:33] LABS: CK-MB VALUE MASS 1.8 NG/ML (<3.6)
[2025-04-09 15:35] LABS: INR 1.35
[2025-04-09 15:36] LABS: ALT/SGPT 10 U/L (7.0-40); AST/SGOT 18 U/L (<34); CALCIUM LEVEL 9.5 MG/DL (8.3-10.6); CARBON DIOXIDE LEVEL 38 MMOL/L (20-31); CHLORIDE LEVEL 97 MMOL/L (98-107); CPK CREATINE PHOSPHOKINASE 24 U/L (34-145); CREATININE FOR GFR 0.53 MG/DL (0.55-1.30); GLOMERULAR FILTRATION RATE > 90.0 (>39); MB/CK RELATIVE INDEX 7.50 (< OR =4); POTASSIUM SERUM 5.4 MMOL/L (3.5-5.1); SODIUM LEVEL 140 MMOL/L (136-145)
[2025-04-09 15:45] LABS: ABG BASE EXCESS 7.3 (-2.0-2.0); ABG HCO3 38.3 MMOL/L (22.0-26.0); ABG O2 SATURATION 92.8 % (95.0-99.0); ABG PARTIAL PRESSURE O2 74.1 mmHg (75.0-100.0); ABG STANDARD HCO3 31.0 MMOL/L. (22.0-26.0); ABG TOTAL CO2 41.2 MMOL/L (23.0-31.0)
[2025-04-09 15:48] LABS: ABG PARTIAL PRESSURE CO2 94.5 mmHg (35.0-45.0); ABG pH (ARTERIAL) 7.226 UNITS (7.350-7.450)
[2025-04-09] MEDS: FUROSEMIDE 40 MG/4 ML VIAL IV ONE (15:49)
[2025-04-09 16:48] LABS: CK-MB VALUE MASS 1.8 NG/ML (<3.6)
[2025-04-09 16:54] LABS: CPK CREATINE PHOSPHOKINASE 23.0 U/L (34-145); MB/CK RELATIVE INDEX 7.82 (< OR =4)
[2025-04-09] MEDS ORDERED: POTA-151 PO (16:57)
[2025-04-09] MEDS ORDERED: CALC1TAB86 PO (16:57)
[2025-04-09] MEDS ORDERED: ASPI81TA26 PO (16:57)
[2025-04-09] MEDS ORDERED: HOME MED LIST COMPLETE! XX SCH (17:00)
[2025-04-09] MEDS ORDERED: ACETAMINOPHEN 325 MG TAB PO PRN (17:50)
[2025-04-09] MEDS ORDERED: MOM 30 ML SUSPENSION UDC PO PRN (17:50)
[2025-04-09 18:43] LABS: ABG BASE EXCESS 8.6 (-2.0-2.0); ABG HCO3 36.3 MMOL/L (22.0-26.0); ABG O2 SATURATION 93.3 % (95.0-99.0); ABG PARTIAL PRESSURE O2 65.3 mmHg (75.0-100.0); ABG STANDARD HCO3 32.3 MMOL/L. (22.0-26.0); ABG TOTAL CO2 38.2 MMOL/L (23.0-31.0); ABG pH (ARTERIAL) 7.367 UNITS (7.350-7.450)
[2025-04-09 18:45] LABS: ABG PARTIAL PRESSURE CO2 64.6 mmHg (35.0-45.0)
[2025-04-09] MEDS: AZITHROMYCIN 250 MG TABLET PO SCH (20:05)
[2025-04-09] MEDS: APIXABAN 5 MG TAB PO SCH (20:05)
[2025-04-09] MEDS: DOCUSATE SODIUM 100 MG CAPSULE PO SCH (20:06)
[2025-04-09] MEDS: METOPROLOL TARTRATE 100 MG TAB PO SCH (20:08)
[2025-04-09] MEDS: BUDESONIDE 0.5 MG/2 ML INHALATION SUSPENSION NEB SCH (20:17)
[2025-04-09] MEDS: ALBUTEROL SULFATE 2.5 MG/0.5 ML INH CONCENTRATE NEB SOLN NEB SCH (20:17)
[2025-04-10] VITALS (11 sets, daily range): BP systolic 119–141; BP diastolic 61–63; TEMP 97.5–98.9; O2SAT 88–99
[2025-04-10 05:11] LABS: PLATELET COUNT, AUTOMATED 157 10^3/uL (150-450)
[2025-04-10 05:22] LABS: ABG BASE EXCESS 6.4 (-2.0-2.0); ABG HCO3 35.3 MMOL/L (22.0-26.0); ABG O2 SATURATION 93.8 % (95.0-99.0); ABG PARTIAL PRESSURE O2 77.4 mmHg (75.0-100.0); ABG STANDARD HCO3 30.2 MMOL/L. (22.0-26.0); ABG TOTAL CO2 37.5 MMOL/L (23.0-31.0); ABG pH (ARTERIAL) 7.300 UNITS (7.350-7.450)
[2025-04-10 05:28] LABS: ABG PARTIAL PRESSURE CO2 73.3 mmHg (35.0-45.0)
[2025-04-10 05:37] LABS: CALCIUM LEVEL 9.7 MG/DL (8.3-10.6); CARBON DIOXIDE LEVEL > 40.0 MMOL/L (20-31); CHLORIDE LEVEL 97 MMOL/L (98-107); CREATININE FOR GFR 0.54 MG/DL (0.55-1.30); GLOMERULAR FILTRATION RATE > 90.0 (>39); POTASSIUM SERUM 4.6 MMOL/L (3.5-5.1); SODIUM LEVEL 142 MMOL/L (136-145)
[2025-04-10] MEDS ORDERED: ALBUTEROL SULFATE 2.5 MG/0.5 ML INH CONCENTRATE NEB SOLN NEB PRN (07:10)
[2025-04-10] MEDS: IPRATROPIUM 0.5 MG/ALBUTEROL 2.5 MG INH SOL UD 3 ML NEB SCH (08:07)
[2025-04-10] MEDS: ASPIRIN 81 MG ENTERIC TABLET PO SCH (08:18)
[2025-04-10] MEDS: FUROSEMIDE 40 MG/4 ML VIAL IV SCH (08:18)
[2025-04-10] MEDS ORDERED: TORSEMIDE 100 MG TAB PO SCH (09:00)
[2025-04-10] MEDS: LORazepam 0.5 MG TAB PO SCH (14:00)
[2025-04-10] MEDS: NICOTINE 21 MG/24 HR 1 EA TRANSDERMAL TD SCH (15:30)
[2025-04-10] MEDS ORDERED: POLYVINYL ALCOHOL OPHTH SOLN 15ML (LIQUITEARS) OU PRN (16:15)
[2025-04-10] MEDS ORDERED: ATROPINE SULFATE 1% OPHTH SOLN 2 ML BTL SL PRN (16:15)
[2025-04-10] MEDS ORDERED: SALIVA SUBSTITUTE BTL MT PRN (16:15)
[2025-04-10] MEDS ORDERED: MIRALAX *UNIT DOSE* 17 GM PACKET PO PRN (16:15)
[2025-04-10] MEDS ORDERED: ONDANSETRON 4MG ORAL DISINTEGRATING TAB PO PRN (16:15)
[2025-04-10] MEDS ORDERED: SENNA 8.6 MG TAB PO PRN (16:15)
[2025-04-10] MEDS ORDERED: HYOSCYAMINE SULFATE 0.125 MG SUBL TABLET SL PRN (16:15)
[2025-04-10] MEDS: MORPHINE 10 MG/0.5 ML ORAL CONCENTRATE SOLUTION U/D SL SCH (17:00)
[2025-04-10] MEDS: LORazepam 1 MG TAB PO PRN (17:24)
[2025-04-10] MEDS: predniSONE 20 MG TAB PO SCH (20:13)
[2025-04-11] MEDS: FUROSEMIDE 40 MG TAB PO SCH (09:57)
[2025-04-11] MEDS: MORPHINE 10 MG/0.5 ML ORAL CONCENTRATE SOLUTION U/D SL PRN (15:23)
[2025-04-11] MEDS: LORazepam 1 MG TAB PO SCH (21:05)
== END 2025-04-12 08:38 | disposition expired | DRG 189 ==
LOC: M ED 13:59 → EDBD 13:59 → M ED INP 17:49 → M ICU 20:43 → M MSPAV 04-11 19:45
PROVIDERS: ADMIT Internal Medicine Nephrology; ATTEND Internal Medicine
DX: J96.21 Acute and chronic respiratory failure with hypoxia (principal); C34.32 Malignant neoplasm of lower lobe, left bronchus or lung; J44.1 Chronic obstructive pulmonary disease with (acute) exacerbation; E66.2 Morbid (severe) obesity with alveolar hypoventilation; J98.11 Atelectasis; C78.1 Secondary malignant neoplasm of mediastinum; I50.30 Unspecified diastolic (congestive) heart failure; J96.22 Acute and chronic respiratory failure with hypercapnia; J44.9 Chronic obstructive pulmonary disease, unspecified; I11.0 Hypertensive heart disease with heart failure; I48.0 Paroxysmal atrial fibrillation; F17.200 Nicotine dependence, unspecified, uncomplicated; I71.40 Abdominal aortic aneurysm, without rupture, unspecified; F41.9 Anxiety disorder, unspecified; Z91.199 Patient's noncompliance with other medical treatment and regimen due to unspecified reason; Z86.711 Personal history of pulmonary embolism; E66.9 Obesity, unspecified; Z79.899 Other long term (current) drug therapy; Z79.82 Long term (current) use of aspirin; K57.90 Diverticulosis of intestine, part unspecified, without perforation or abscess without bleeding; Z51.5 Encounter for palliative care